=== PATIENT | female | born 1970 | race African-American/Black ===

== ENCOUNTER 2021-08-23 20:51 | Inpatient (IN) | payer BC ==
[2021-08-23 21:42] LABS: Anion Gap 17 mmol/L (10-20); BUN (Urea Nitrogen) 26 mg/dL (9.8-20.1); Calc. Creatinine Clearance 0 mL/min (70-130); Carbon Dioxide 36 mmol/L (22-29); Chloride 88 mmol/L (98-107); Glucose 130 mg/dL (70-105); Sodium 139 mmol/L (136-145)
[2021-08-23 22:00] LABS: Potassium 2.2 mmol/L (3.5-5.1)
[2021-08-23 22:19] LABS: Troponin I 0.026 ng/mL (< 0.028)
[2021-08-23] MEDS ORDERED: Potassium Chloride 20 MEQ TAB PO SCH (22:30)
[2021-08-23 23:51] VITALS: BMI 13.8
[2021-08-24] MEDS: Acetaminophen 325 MG TAB PO PRN (00:22)
[2021-08-24] MEDS: hydrALAZINE 20 MG/ML VIAL SLOW IVP PRN ×3 (00:22→21:30)
[2021-08-24] MEDS: Potassium Chloride 40 MEQ in Sodium Chloride 0.45% 1,000 ML IV SCH ×4 (00:23→18:16)
[2021-08-24 01:47] LABS: Troponin I 0.013 ng/mL (< 0.028)
[2021-08-24 02:31] LABS: Anion Gap 20 mmol/L (10-20); BUN (Urea Nitrogen) 25 mg/dL (9.8-20.1); Calc. Creatinine Clearance 37 mL/min (70-130); Calcium 9.2 mg/dL (7.8-10.44); Carbon Dioxide 32 mmol/L (22-29); Chloride 91 mmol/L (98-107); Glucose 86 mg/dL (70-105); Sodium 140 mmol/L (136-145)
[2021-08-24 02:35] LABS: Potassium 2.5 mmol/L (3.5-5.1)
[2021-08-24] MEDS ORDERED: Potassium Chloride 20 MEQ TAB PO SCH (02:45)
[2021-08-24 04:43] LABS: #Lymphocytes 1.1 thou/uL (1.20-3.40); #Monocytes 0.6 thou/uL (0.11-0.59); #Neutrophils 6.8 thou/uL (1.40-6.50); %Basophils 0.3 % (0.0-1.0); %Eosinophils 0.2 % (0.0-10.0); %Lymphocytes 13.2 % (21.0-51.0); %Monocytes 7.2 % (0.0-10.0); Hemoglobin 12.5 g/dL (12.0-16.0); Mean Corpuscular HGB CONC 34.8 g/dL (32.0-36.0); Mean Corpuscular Hemoglobin 38.2 pg (27.0-31.0); Mean Platelet Volume 7.7 fL (7.4-10.4); Platelet Count 345 thou/uL (130-400); RBC Distribution Width 13.7 % (11.5-14.5); Red Blood Cell (RBC) Count 3.28 mill/uL (4.20-5.40); White Blood Cell (WBC) Count 8.6 thou/uL (4.8-10.8)
[2021-08-24 05:05] LABS: Cardiac Risk 3.9 (Less than 4.5); Cholesterol 212 mg/dl (< 200 Desired); HDL Cholesterol 55 mg/dL (>60 Neg Risk); LDL Cholesterol, Calculated 137 mg/dL; Magnesium 1.6 mg/dL (1.6-2.6); Triglycerides 101 mg/dL (Less than 150)
[2021-08-24 05:08] LABS: Troponin I 0.027 ng/mL (< 0.028)
[2021-08-24] MEDS ORDERED: Electrolyte Replacement Protocol 1 EACH FS SCH (05:30)
[2021-08-24] MEDS ORDERED: Magnesium 2 GM/50 ML 2 GM in Premix Bag 1 BAG IVPB SCH (05:30)
[2021-08-24 06:12] LABS: Anion Gap 18 mmol/L (10-20); BUN (Urea Nitrogen) 22 mg/dL (9.8-20.1); Calc. Creatinine Clearance 40 mL/min (70-130); Calcium 8.8 mg/dL (7.8-10.44); Carbon Dioxide 30 mmol/L (22-29); Chloride 92 mmol/L (98-107); Glucose 111 mg/dL (70-105); Sodium 137 mmol/L (136-145)
[2021-08-24 06:14] LABS: Potassium 2.6 mmol/L (3.5-5.1)
[2021-08-24 08:24] LABS: Hemoglobin A1c 4.4 % (4.0-6.0)
[2021-08-24] MEDS: PHOS-NAK 1 PKT PACK PO SCH ×2 (09:12→12:24)
[2021-08-24] MEDS: Ondansetron ODT 4 MG TAB PO PRN ×2 (09:20→16:32)
[2021-08-24] MEDS ORDERED: Iopamidol-370 76% 500 ML 1 ML ONE (10:39)
[2021-08-24 14:25] LABS: Amphetamine Not Detected (NotDetected); Barbiturates Screen Not Detected (NotDetected); Benzodiazepine Screen Not Detected (NotDetected); Cocaine Metabolite Screen Not Detected (NotDetected); Methadone Not Detected (NotDetected); Methamphetamine Not Detected (NotDetected); Opiate Screen Not Detected (NotDetected); Oxycodone Screen Not Detected (NotDetected); Phencyclidine (PCP) Not Detected (NotDetected); THC/Cannabinoid Screen Not Detected (NotDetected); Tricyclic Screen Not Detected (NotDetected)
[2021-08-24] MEDS ORDERED: Cosyntropin 250 MCG VIAL SLOW IVP SCH (15:30)
[2021-08-24 16:24] LABS: SARS-CoV-2 PCR by NAA Not Detected (NotDetected)
[2021-08-24 18:14] LABS: HBCM Index 0.05 S/CO (0-0.79); HBSAg Index 0.26 S/CO (0-0.99); HIV (1/2) Antibody/Antigen Non-Reactive (NonReactive); HIV 1/2 INDEX 0.09 S/CO (<1.00); Hep A IgM AB Non-Reactive (NonReactive); Hep B Surf Ag Non-Reactive S/CO (NonReactive); Hep C IgG Ab Non-Reactive (NonReactive); Hep C Index 0.07 S/CO (0-0.79); Hepatitis B Core IgM Abs Non-Reactive (NonReactive)
[2021-08-24 18:16] LABS: Syphilis Antibody Nonreactive (Nonreactive); Syphilis Antibody Index 0.05 S/CO (<1.00 Non-Reactive)
[2021-08-25 07:07] LABS: #Lymphocytes 0.9 thou/uL (1.20-3.40); #Monocytes 0.6 thou/uL (0.11-0.59); #Neutrophils 6.2 thou/uL (1.40-6.50); %Basophils 0.1 % (0.0-1.0); %Eosinophils 0.3 % (0.0-10.0); %Lymphocytes 11.4 % (21.0-51.0); %Monocytes 7.9 % (0.0-10.0); %Neutrophils 80.3 % (42.0-75.0); Hemoglobin 12.2 g/dL (12.0-16.0); Mean Corpuscular HGB CONC 33.9 g/dL (32.0-36.0); Mean Corpuscular Hemoglobin 37.6 pg (27.0-31.0); Mean Platelet Volume 7.8 fL (7.4-10.4); Platelet Count 350 thou/uL (130-400); Red Blood Cell (RBC) Count 3.25 mill/uL (4.20-5.40); White Blood Cell (WBC) Count 7.7 thou/uL (4.8-10.8)
[2021-08-25 07:34] LABS: ALT (SGPT) 12 U/L (8-55); AST (SGOT) 21 U/L (5-34); Alkaline Phosphatase 44 U/L (40-110); Anion Gap 18 mmol/L (10-20); BUN (Urea Nitrogen) 14 mg/dL (9.8-20.1); Bilirubin, Total 1.4 mg/dL (0.2-1.2); Calc. Creatinine Clearance 45 mL/min (70-130); Calcium 8.4 mg/dL (7.8-10.44); Carbon Dioxide 27 mmol/L (22-29); Chloride 94 mmol/L (98-107); Glucose 126 mg/dL (70-105); Sodium 136 mmol/L (136-145)
[2021-08-25 07:43] LABS: Potassium 2.9 mmol/L (3.5-5.1)
[2021-08-25] MEDS ORDERED: Potassium Chloride 20 MEQ TAB PO SCH (09:00)
[2021-08-25] MEDS: Potassium Chloride 20 MEQ in Premix Bag 1 BAG IVPB SCH ×2 (09:57→14:46)
[2021-08-25] MEDS: Potassium Chloride 40 MEQ in Sodium Chloride 0.45% 1,000 ML IV SCH ×2 (10:00→14:46)
[2021-08-25] MEDS: hydrALAZINE 20 MG/ML VIAL SLOW IVP PRN (17:34)
[2021-08-25] MEDS: Acetaminophen 325 MG TAB PO PRN (21:37)
[2021-08-26] MEDS: Potassium Chloride 40 MEQ in Sodium Chloride 0.45% 1,000 ML IV SCH (01:26)
[2021-08-26 04:36] VITALS: TEMP 97.5
[2021-08-26 08:22] VITALS: BP 126/94
[2021-08-27] MEDS ORDERED: FLU VACC QS2021-22(6MOS UP)/PF 60 MCG/0.5 ML SYRINGE IM ONE (09:00)
== END 2021-08-26 10:06 | disposition home or self-care (01) | DRG 640 ==
LOC: ERS 20:51 → 2NO 21:26 → T4-A 08-24 18:01
PROVIDERS: ADMIT Student in an Organized Health Care Education/Training Program; ATTEND Internal Medicine
DX: E87.6 Hypokalemia (principal); E43 Unspecified severe protein-calorie malnutrition; R64 Cachexia; Z68.1 Body mass index [BMI] 19.9 or less, adult; Z20.822 Contact with and (suspected) exposure to COVID-19; E83.42 Hypomagnesemia; K52.9 Noninfective gastroenteritis and colitis, unspecified; I10 Essential (primary) hypertension; R73.03 Prediabetes; E53.8 Deficiency of other specified B group vitamins; Z91.14 Patient's other noncompliance with medication regimen; Z91.81 History of falling
CPT/HCPCS: 36415; 36416; 70450; 70551; 71045; 74177; 80048; 80053; 80061; 80074; 80306; 80307; 80400; 81003; 82140; 82533; 82550; 82607; 82746; 83036; 83605; 83735; 84100; 84439; 84443; 84484; 85025; 86780; 87389; 93005; 94760; J0360; J0834; J2060; J3411; J3475; J3480; J7042; Q0162; Q9967; U0003; U0005

== ENCOUNTER 2021-08-26 19:57 | Inpatient (IN) | payer BC ==
[2021-08-26 21:12] LABS: Hemoglobin 13.7 g/dL (12.0-16.0); Mean Corpuscular HGB CONC 33.5 g/dL (32.0-36.0); Mean Corpuscular Hemoglobin 37.5 pg (27.0-31.0); Mean Platelet Volume 7.8 fL (7.4-10.4); Platelet Count 347 thou/uL (130-400); RBC Distribution Width 14.1 % (11.5-14.5); Red Blood Cell (RBC) Count 3.66 mill/uL (4.20-5.40); White Blood Cell (WBC) Count 10.9 thou/uL (4.8-10.8)
[2021-08-26 21:26] LABS: Acetaminophen Less than 6.0 mcg/mL (10.0-30.0); Alcohol Less than 10 mg/dL (Less than 10); CK (CPK) 85 U/L (29-168); Magnesium 1.3 mg/dL (1.6-2.6); Salicylate Less than 8.0 mg/dL (15.0-30.0)
[2021-08-26 21:27] LABS: ALT (SGPT) 21 U/L (8-55); AST (SGOT) 35 U/L (5-34); Albumin 4.1 g/dL (3.5-5.0); Alkaline Phosphatase 53 U/L (40-110); Anion Gap 17 mmol/L (10-20); BUN (Urea Nitrogen) 13 mg/dL (9.8-20.1); Bilirubin, Total 1.5 mg/dL (0.2-1.2); Calc. Creatinine Clearance 0 mL/min (70-130); Calcium 7.8 mg/dL (7.8-10.44); Carbon Dioxide 20 mmol/L (22-29); Chloride 100 mmol/L (98-107); Globulin 3.3 g/dL (2.4-3.5); Glucose 74 mg/dL (70-105); Potassium 3.3 mmol/L (3.5-5.1); Protein, Total 7.4 g/dL (6.0-8.3); Sodium 134 mmol/L (136-145)
[2021-08-26 21:30] LABS: #Lymphocytes 0.9 thou/uL (1.20-3.40); #Monocytes 0.7 thou/uL (0.11-0.59); #Neutrophils 9.2 thou/uL (1.40-6.50); %Basophils 0.1 % (0.0-1.0); %Eosinophils 0.2 % (0.0-10.0); %Lymphocytes 8.6 % (21.0-51.0); %Monocytes 6.5 % (0.0-10.0); %Neutrophils 84.6 % (42.0-75.0)
[2021-08-26] MEDS ORDERED: Magnesium 2 GM/50 ML BAG (IN WATER) ONE (21:42)
[2021-08-26] MEDS ORDERED: Potassium Chloride 20 MEQ/100 ML PREMIX BAG ONE (21:42)
[2021-08-26] MEDS ORDERED: Multivitamins, Adult 10 ML, Thiamine HCl 100 MG, Folic Acid 1 MG in Dextrose 5 %-0.45 %... IV SCH (21:45)
[2021-08-26 23:04] LABS: Bilirubin Negative (Negative); Blood, Urine Negative (Negative); Clarity Clear (Clear); Glucose, Urine (Dipstick) Normal (Negative); Ketone, Urine Negative (Negative); Leukocyte Negative Leu/uL (Negative); Nitrite Negative (Negative); Protein, Urine (Dipstick) Negative (Neg-Trace); Urobilinogen Normal mg/dL (Less than 2)
[2021-08-26 23:11] LABS: Amphetamine Not Detected (NotDetected); Barbiturates Screen Not Detected (NotDetected); Benzodiazepine Screen Not Detected (NotDetected); Cocaine Metabolite Screen Not Detected (NotDetected); Methadone Not Detected (NotDetected); Methamphetamine Not Detected (NotDetected); Opiate Screen Not Detected (NotDetected); Oxycodone Screen Not Detected (NotDetected); Phencyclidine (PCP) Not Detected (NotDetected); THC/Cannabinoid Screen Not Detected (NotDetected); Tricyclic Screen Not Detected (NotDetected)
[2021-08-26] MEDS ORDERED: Lorazepam 2 MG/ML VIAL ONE (23:19)
[2021-08-27] MEDS ORDERED: Lorazepam 1 MG TAB PO PRN
[2021-08-27 00:03] LABS: Lactic Acid 2.2 mmol/L (0.5-2.2)
[2021-08-27] MEDS ORDERED: Acetaminophen 325 MG TAB PO PRN (06:25)
[2021-08-27] MEDS ORDERED: Ondansetron PF 4 MG/2 ML Vial IVP PRN (06:25)
[2021-08-27] MEDS ORDERED: Lorazepam 2 MG/ML VIAL IM PRN (06:45)
[2021-08-27] MEDS ORDERED: Electrolyte Replacement Protocol 1 EACH FS PRN (06:45)
[2021-08-27] MEDS ORDERED: Ondansetron ODT 4 MG TAB PO PRN (06:45)
[2021-08-27] MEDS: Lorazepam 1 MG TAB PO SCH ×4 (06:50→22:44)
[2021-08-27] MEDS ORDERED: Lorazepam 1 MG TAB ONE (06:52)
[2021-08-27 07:15] LABS: #Lymphocytes 1.3 thou/uL (1.20-3.40); #Monocytes 0.8 thou/uL (0.11-0.59); #Neutrophils 8.7 thou/uL (1.40-6.50); %Basophils 0.4 % (0.0-1.0); %Eosinophils 0.3 % (0.0-10.0); %Lymphocytes 11.5 % (21.0-51.0); %Monocytes 7.5 % (0.0-10.0); %Neutrophils 80.3 % (42.0-75.0); Hemoglobin 12.3 g/dL (12.0-16.0); Mean Corpuscular HGB CONC 34.8 g/dL (32.0-36.0); Mean Corpuscular Hemoglobin 38.5 pg (27.0-31.0); Mean Platelet Volume 8.2 fL (7.4-10.4); Platelet Count 239 thou/uL (130-400); RBC Distribution Width 13.9 % (11.5-14.5); Red Blood Cell (RBC) Count 3.19 mill/uL (4.20-5.40); White Blood Cell (WBC) Count 10.8 thou/uL (4.8-10.8)
[2021-08-27 07:28] LABS: ALT (SGPT) 18 U/L (8-55); AST (SGOT) 30 U/L (5-34); Albumin 3.6 g/dL (3.5-5.0); Alkaline Phosphatase 46 U/L (40-110); Anion Gap 15 mmol/L (10-20); BUN (Urea Nitrogen) 12 mg/dL (9.8-20.1); Bilirubin, Total 1.1 mg/dL (0.2-1.2); Calc. Creatinine Clearance 54 mL/min (70-130); Calcium 7.5 mg/dL (7.8-10.44); Carbon Dioxide 20 mmol/L (22-29); Chloride 100 mmol/L (98-107); Globulin 2.8 g/dL (2.4-3.5); Glucose 105 mg/dL (70-105); Magnesium 1.8 mg/dL (1.6-2.6); Potassium 3.6 mmol/L (3.5-5.1); Protein, Total 6.4 g/dL (6.0-8.3); Sodium 131 mmol/L (136-145)
[2021-08-27 07:36] LABS: MDiff Complete? YES; Macrocytosis MODERATE=16-30 cells (100X) (0-5/hpf); Platelet Morphology Comment Appears Adequate; Polychromasia SLIGHT = 2-3 cells (100X) (0-2/hpf)
[2021-08-27] MEDS ORDERED: Magnesium 2 GM/50 ML 2 GM in Premix Bag 1 BAG IVPB SCH (08:00)
[2021-08-27 08:43] LABS: SARS-CoV-2 NAA Rapid Test Not Detected (NotDetected)
[2021-08-27] MEDS: Multivit, Therapeutic 1 TAB PO SCH (09:09)
[2021-08-27] MEDS: Thiamine HCl 200 MG/2 ML VIAL SLOW IVP SCH (09:10)
[2021-08-27] MEDS ORDERED: Magnesium 2 GM/50 ML BAG (IN WATER) ONE (09:21)
[2021-08-27] MEDS ORDERED: Folic Acid 1 MG TAB ONE (09:21)
[2021-08-27] MEDS: Folic Acid 1 MG TAB PO SCH (09:31)
[2021-08-28 05:00] LABS: #Lymphocytes 1.3 thou/uL (1.20-3.40); #Monocytes 0.5 thou/uL (0.11-0.59); #Neutrophils 4.7 thou/uL (1.40-6.50); %Basophils 0.4 % (0.0-1.0); %Eosinophils 0.6 % (0.0-10.0); %Lymphocytes 20.2 % (21.0-51.0); %Monocytes 7.9 % (0.0-10.0); Mean Corpuscular HGB CONC 34.3 g/dL (32.0-36.0); Mean Corpuscular Hemoglobin 37.6 pg (27.0-31.0); Mean Platelet Volume 9.3 fL (7.4-10.4); Platelet Count 244 thou/uL (130-400); RBC Distribution Width 14.1 % (11.5-14.5); Red Blood Cell (RBC) Count 3.19 mill/uL (4.20-5.40); White Blood Cell (WBC) Count 6.7 thou/uL (4.8-10.8)
[2021-08-28 05:59] LABS: Anion Gap 13 mmol/L (10-20); BUN (Urea Nitrogen) 12 mg/dL (9.8-20.1); Calc. Creatinine Clearance 51 mL/min (70-130); Calcium 8.9 mg/dL (7.8-10.44); Carbon Dioxide 23 mmol/L (22-29); Chloride 99 mmol/L (98-107); Glucose 92 mg/dL (70-105); Magnesium 1.8 mg/dL (1.6-2.6); Potassium 3.1 mmol/L (3.5-5.1); Sodium 132 mmol/L (136-145)
[2021-08-28] MEDS: Lorazepam 1 MG TAB PO SCH ×4 (06:44→21:19)
[2021-08-28] MEDS ORDERED: Lorazepam 1 MG TAB PO PRN (06:45)
[2021-08-28] MEDS ORDERED: Potassium Chloride 20 MEQ TAB PO SCH (07:00)
[2021-08-28] MEDS ORDERED: Magnesium 2 GM/50 ML 2 GM in Premix Bag 1 BAG IVPB SCH (07:00)
[2021-08-28] MEDS ORDERED: Hydrocerin (Eucerin) Cream 120 gm Jar TOP PRN (07:02)
[2021-08-28] MEDS ORDERED: Senokot S 8.6-50 MG TAB PO PRN (07:02)
[2021-08-28] MEDS ORDERED: Bisacodyl 5 MG TAB PO PRN (07:02)
[2021-08-28] MEDS ORDERED: Benzonatate 100 MG CAP PO PRN (07:02)
[2021-08-28] MEDS ORDERED: Loperamide HCl 2 MG CAP PO PRN (07:02)
[2021-08-28] MEDS ORDERED: Sodium Chloride 0.65% Nasal 44 ML BOT EA NARE PRN (07:02)
[2021-08-28] MEDS ORDERED: GUAIFENESIN SF SOLN 200 MG/10 ML UDCUP PO PRN (07:02)
[2021-08-28] MEDS ORDERED: Loratadine 10 MG TAB PO PRN (07:02)
[2021-08-28] MEDS ORDERED: Cepastat Lozenges 1 LOZ PO PRN (07:02)
[2021-08-28] MEDS ORDERED: Calcium Carbonate 500 MG ChewTAB PO PRN (07:02)
[2021-08-28] MEDS ORDERED: Artificial Tear Sol 15 ML BOT EA EYE PRN (07:02)
[2021-08-28] MEDS ORDERED: HYDROcodone/Acetaminophen 5/325 mg Tablet PO PRN (07:02)
[2021-08-28] MEDS: Multivit, Therapeutic 1 TAB PO SCH (07:07)
[2021-08-28] MEDS: Folic Acid 1 MG TAB PO SCH (07:07)
[2021-08-28] MEDS: Thiamine HCl 200 MG/2 ML VIAL SLOW IVP SCH (08:18)
[2021-08-28] MEDS: Famotidine 20 MG TAB PO SCH ×3 (08:18→20:39)
[2021-08-28] MEDS ORDERED: FLU VACC QS2021-22(6MOS UP)/PF 60 MCG/0.5 ML SYRINGE IM ONE (09:00)
[2021-08-28 15:05] VITALS: BMI 13.7
[2021-08-28] MEDS: hydrALAZINE 20 MG/ML VIAL SLOW IVP PRN (20:39)
[2021-08-28] MEDS ORDERED: Metoprolol Tartrate 5 MG/5 ML VIAL IVP SCH (21:30)
[2021-08-28] MEDS ORDERED: Metoprolol Tartrate 5 MG/5 ML VIAL ONE (21:31)
[2021-08-29 05:19] LABS: #Eosinphils 0.1 thou/uL (0.0-0.7); #Lymphocytes 1.6 thou/uL (1.20-3.40); #Monocytes 0.8 thou/uL (0.11-0.59); #Neutrophils 5.8 thou/uL (1.40-6.50); %Basophils 0.2 % (0.0-1.0); %Eosinophils 0.9 % (0.0-10.0); %Lymphocytes 18.9 % (21.0-51.0); %Monocytes 9.7 % (0.0-10.0); %Neutrophils 70.2 % (42.0-75.0); Hemoglobin 11.5 g/dL (12.0-16.0); Mean Corpuscular HGB CONC 34.6 g/dL (32.0-36.0); Mean Corpuscular Hemoglobin 38.2 pg (27.0-31.0); Mean Platelet Volume 8.4 fL (7.4-10.4); Platelet Count 321 thou/uL (130-400); RBC Distribution Width 13.9 % (11.5-14.5); White Blood Cell (WBC) Count 8.2 thou/uL (4.8-10.8)
[2021-08-29 05:42] LABS: Anion Gap 14 mmol/L (10-20); BUN (Urea Nitrogen) 14 mg/dL (9.8-20.1); Calc. Creatinine Clearance 50 mL/min (70-130); Calcium 9.7 mg/dL (7.8-10.44); Carbon Dioxide 21 mmol/L (22-29); Chloride 105 mmol/L (98-107); Glucose 113 mg/dL (70-105); Magnesium 1.8 mg/dL (1.6-2.6); Potassium 3.9 mmol/L (3.5-5.1); Sodium 136 mmol/L (136-145)
[2021-08-29] MEDS: Lorazepam 0.5 MG TAB PO SCH ×3 (05:44→17:17)
[2021-08-29] MEDS ORDERED: cloNIDine 0.1 MG TAB PO SCH (05:45)
[2021-08-29] MEDS: Sodium Chloride 0.9% 1,000 ML IV SCH ×2 (05:45→18:12)
[2021-08-29] MEDS ORDERED: Magnesium 2 GM/50 ML 2 GM in Premix Bag 1 BAG IVPB SCH (06:15)
[2021-08-29] MEDS ORDERED: Lorazepam 1 MG TAB PO PRN (06:45)
[2021-08-29] MEDS: Famotidine 20 MG TAB PO SCH ×2 (09:07→20:30)
[2021-08-29] MEDS: Multivit, Therapeutic 1 TAB PO SCH (09:07)
[2021-08-29] MEDS: Enoxaparin Sodium 40 MG/0.4 ML SYRINGE SC SCH (09:07)
[2021-08-29] MEDS: Folic Acid 1 MG TAB PO SCH (09:07)
[2021-08-29] MEDS: Thiamine HCl 200 MG/2 ML VIAL SLOW IVP SCH (11:17)
[2021-08-30] MEDS: Lorazepam 0.5 MG TAB PO SCH (00:14)
[2021-08-30] MEDS: hydrALAZINE 20 MG/ML VIAL SLOW IVP PRN (00:15)
[2021-08-30 03:56] LABS: #Eosinphils 0.1 thou/uL (0.0-0.7); #Lymphocytes 1.6 thou/uL (1.20-3.40); #Monocytes 0.8 thou/uL (0.11-0.59); #Neutrophils 6.3 thou/uL (1.40-6.50); %Basophils 0.5 % (0.0-1.0); %Eosinophils 1.5 % (0.0-10.0); %Monocytes 9.1 % (0.0-10.0); %Neutrophils 70.9 % (42.0-75.0); Hemoglobin 10.1 g/dL (12.0-16.0); Mean Corpuscular HGB CONC 35.5 g/dL (32.0-36.0); Mean Corpuscular Hemoglobin 39.5 pg (27.0-31.0); Mean Platelet Volume 7.6 fL (7.4-10.4); Platelet Count 328 thou/uL (130-400); Red Blood Cell (RBC) Count 2.56 mill/uL (4.20-5.40); White Blood Cell (WBC) Count 8.9 thou/uL (4.8-10.8)
[2021-08-30 04:00] LABS: Anion Gap 13 mmol/L (10-20); BUN (Urea Nitrogen) 12 mg/dL (9.8-20.1); Calc. Creatinine Clearance 49 mL/min (70-130); Calcium 9.2 mg/dL (7.8-10.44); Carbon Dioxide 21 mmol/L (22-29); Chloride 108 mmol/L (98-107); Glucose 100 mg/dL (70-105); Magnesium 1.7 mg/dL (1.6-2.6); Potassium 3.4 mmol/L (3.5-5.1); Sodium 139 mmol/L (136-145)
[2021-08-30] MEDS ORDERED: Magnesium 2 GM/50 ML 2 GM in Premix Bag 1 BAG IVPB SCH (06:00)
[2021-08-30] MEDS ORDERED: Potassium Chloride 20 MEQ TAB PO SCH (06:00)
[2021-08-30] MEDS ORDERED: Lorazepam 0.5 MG TAB PO PRN (06:00)
[2021-08-30] MEDS: Folic Acid 1 MG TAB PO SCH (08:38)
[2021-08-30] MEDS: Enoxaparin Sodium 40 MG/0.4 ML SYRINGE SC SCH (08:38)
[2021-08-30] MEDS: Metoprolol Tartrate 50 MG TAB PO SCH ×2 (08:39→20:35)
[2021-08-30] MEDS: Famotidine 20 MG TAB PO SCH ×2 (08:39→20:35)
[2021-08-30] MEDS: Multivit, Therapeutic 1 TAB PO SCH (08:39)
[2021-08-30] MEDS ORDERED: Metoprolol Tartrate 25 MG TAB PO SCH (09:00)
[2021-08-30] MEDS ORDERED: Amlodipine 5 MG TAB PO SCH (09:00)
[2021-08-30] MEDS: Thiamine 100 MG TAB PO SCH (09:12)
[2021-08-31] MEDS: Multivit, Therapeutic 1 TAB PO SCH (08:48)
[2021-08-31] MEDS: Thiamine 100 MG TAB PO SCH (08:48)
[2021-08-31] MEDS: Famotidine 20 MG TAB PO SCH ×2 (08:49→21:08)
[2021-08-31] MEDS: Folic Acid 1 MG TAB PO SCH (08:50)
[2021-08-31] MEDS: Metoprolol Tartrate 50 MG TAB PO SCH ×2 (08:54→21:08)
[2021-08-31] MEDS ORDERED: Enoxaparin Sodium 30 MG/0.3 ML SYRINGE SC SCH (09:00)
[2021-09-01 00:14] VITALS: BP 130/90; TEMP 98.1
== END 2021-09-01 01:09 | disposition home or self-care (01) | DRG 56 ==
LOC: ERS 19:57 → ERHOLD 23:47 → 2NO 08-27 12:47 → OBSVTOIN 08-28 17:13 → ONC 08-29 13:46
PROVIDERS: ADMIT Internal Medicine; ATTEND Internal Medicine
DX: G31.2 Degeneration of nervous system due to alcohol (principal); E43 Unspecified severe protein-calorie malnutrition; G93.40 Encephalopathy, unspecified; R64 Cachexia; E87.2 Acidosis; Z68.1 Body mass index [BMI] 19.9 or less, adult; F10.239 Alcohol dependence with withdrawal, unspecified; Z20.822 Contact with and (suspected) exposure to COVID-19; R73.03 Prediabetes; I10 Essential (primary) hypertension; E87.6 Hypokalemia; E83.42 Hypomagnesemia; R79.89 Other specified abnormal findings of blood chemistry; Z91.81 History of falling; Z91.19 Patient's noncompliance with other medical treatment and regimen
CPT/HCPCS: 36415; 70450; 71045; 72125; 76536; 80048; 80053; 80306; 80307; 81003; 82140; 82550; 83605; 83735; 84439; 84443; 84484; 85025; 93005; 94760; J0360; J1650; J2060; J3411; J3475; J3480; J7042; J7050; U0002

== ENCOUNTER 2022-04-27 15:57 | Emergency (ER) | payer BC ==
[2022-04-28] MEDS ORDERED: Potassium Chloride 20 MEQ TAB ONE (18:02)
[2022-04-28] MEDS ORDERED: Potassium Chloride 20 MEQ/100 ML PREMIX BAG ONE ×2 (18:02→18:07)
== END 2022-04-27 17:10 | disposition left against medical advice (07) ==
LOC: ERS 15:57
DX: Z53.21 Procedure and treatment not carried out due to patient leaving prior to being seen by health care provider (principal)
CPT/HCPCS: J3480

== ENCOUNTER 2022-04-28 16:15 | Inpatient (IN) | payer BC ==
[2022-04-28 17:07] LABS: Hemoglobin 12.3 g/dL (12.0-16.0); Mean Corpuscular HGB CONC 33.5 g/dL (32.0-36.0); Mean Corpuscular Hemoglobin 36.5 pg (27.0-31.0); Mean Platelet Volume 8.3 fL (7.4-10.4); Platelet Count 281 thou/uL (130-400); Red Blood Cell (RBC) Count 3.37 mill/uL (4.20-5.40)
[2022-04-28 17:21] LABS: Eosinophils 5 % (0-10); Lymphocytes 29 % (21-51); MDiff Complete? YES; Macrocytosis SLIGHT = 6-15 cells (100X) (0-5/hpf); Monocytes 3 % (0-10); Neutrophil 47 % (42-75); Platelet Morphology Comment Appears Adequate; Polychromasia SLIGHT = 2-3 cells (100X) (0-2/hpf); Reactive Lymphocytes 16 % (0-10); Target Cells SLIGHT = 2-5 cells (100X) (0-1/hpf)
[2022-04-28 17:27] LABS: ALT (SGPT) 10 U/L (8-55); AST (SGOT) 28 U/L (5-34); Albumin 3.2 g/dL (3.5-5.0); Alkaline Phosphatase 51 U/L (40-110); Anion Gap 17 mmol/L (10-20); BUN (Urea Nitrogen) 6 mg/dL (9.8-20.1); Bilirubin, Total 2.3 mg/dL (0.2-1.2); Calc. Creatinine Clearance 0 mL/min (70-130); Calcium 8.3 mg/dL (7.8-10.44); Carbon Dioxide 26 mmol/L (22-29); Chloride 98 mmol/L (98-107); Estimated GFR 37; Globulin 3.1 g/dL (2.4-3.5); Glucose 99 mg/dL (70-105); Protein, Total 6.3 g/dL (6.0-8.3); Sodium 140 mmol/L (136-145)
[2022-04-28 17:33] LABS: Potassium 1.3 mmol/L (3.5-5.1)
[2022-04-28 18:01] LABS: Phosphorus 3.3 mg/dL (2.3-4.7)
[2022-04-28 18:03] LABS: Magnesium 1.4 mg/dL (1.6-2.6)
[2022-04-28] MEDS ORDERED: Silver Nitrate Application 1 EACH ONE (20:59)
[2022-04-28] MEDS ORDERED: Electrolyte Replacement Protocol 1 EACH FS SCH (22:00)
[2022-04-28] MEDS ORDERED: Ondansetron PF 4 MG/2 ML Vial IVP PRN (22:06)
[2022-04-28] MEDS ORDERED: Ondansetron ODT 4 MG TAB PO PRN (22:06)
[2022-04-28] MEDS ORDERED: Acetaminophen 650 MG Suppository PR PRN (22:06)
[2022-04-28 23:23] VITALS: BMI 11.9
[2022-04-28 23:39] LABS: Anion Gap 13 mmol/L (10-20); BUN (Urea Nitrogen) 5 mg/dL (9.8-20.1); Calc. Creatinine Clearance 22 mL/min (70-130); Calcium 7.6 mg/dL (7.8-10.44); Carbon Dioxide 29 mmol/L (22-29); Chloride 105 mmol/L (98-107); Estimated GFR 40; Glucose 87 mg/dL (70-105); Magnesium 1.3 mg/dL (1.6-2.6); Sodium 145 mmol/L (136-145)
[2022-04-28 23:44] LABS: Potassium 1.6 mmol/L (3.5-5.1)
[2022-04-29] MEDS ORDERED: Dextrose 50% Abboject 50 ML SYRINGE SLOW IVP PRN (00:07)
[2022-04-29] MEDS ORDERED: HumaLOG 300 UNITS/3 ML VIAL SC PRN ×2 (00:07)
[2022-04-29] MEDS ORDERED: Dextrose 5% in Water 1,000 ML IV PRN (00:07)
[2022-04-29] MEDS ORDERED: Magnesium 2 GM/50 ML(in water) 2 GM in Premix Bag 1 BAG IVPB SCH (01:15)
[2022-04-29] MEDS: NS 0.9% w/ 20 MEQ KCL 1,000 ML IV SCH ×2 (01:31→08:25)
[2022-04-29] MEDS: Acetaminophen 325 MG TAB PO PRN ×2 (01:43→12:09)
[2022-04-29 02:04] LABS: Bilirubin Negative (Negative); Blood, Urine Negative (Negative); Clarity Clear (Clear); Glucose, Urine (Dipstick) Normal (Negative); Ketone, Urine Negative (Negative); Leukocyte 75 Leu/uL (Negative); Nitrite Negative (Negative); Protein, Urine (Dipstick) 10 mg/dL (Neg-Trace); Specific Gravity, Urine 1.013 (1.002-1.036); Urobilinogen Normal mg/dL (Less than 2); pH, Urine 6.5 (5.0-9.0)
[2022-04-29 02:11] LABS: RBC/HPF 0-3 HPF (0-3); WBC/HPF 0-3 HPF (0-3)
[2022-04-29 02:12] LABS: Bacteria/HPF 1+ HPF (None Seen); Squamous Epithelial 0-3 HPF (0-3)
[2022-04-29] MEDS: Potassium Chloride 20 MEQ in Premix Bag 1 BAG IVPB SCH ×4 (03:05→11:29)
[2022-04-29 05:24] LABS: Hemoglobin 11.1 g/dL (12.0-16.0); Lymphocytes 23 % (21-51); MDiff Complete? YES; Macrocytosis MODERATE=16-30 cells (100X) (0-5/hpf); Mean Corpuscular HGB CONC 34.2 g/dL (32.0-36.0); Mean Corpuscular Hemoglobin 36.6 pg (27.0-31.0); Mean Platelet Volume 8.3 fL (7.4-10.4); Monocytes 6 % (0-10); Neutrophil 70 % (42-75); Ovalocytes SLIGHT = 2-5 cells (100X) (0-1/hpf); Platelet Count 245 thou/uL (130-400); Platelet Morphology Comment Appears Adequate; RBC Distribution Width 13.8 % (11.5-14.5); Red Blood Cell (RBC) Count 3.03 mill/uL (4.20-5.40); Target Cells SLIGHT = 2-5 cells (100X) (0-1/hpf); White Blood Cell (WBC) Count 8.2 thou/uL (4.8-10.8)
[2022-04-29 06:58] LABS: Magnesium 2.4 mg/dL (1.6-2.6)
[2022-04-29 07:53] LABS: Creatinine, Urine 170.31 mg/dL (47-110); Potassium, Urine 11.9 mmol/L
[2022-04-29] MEDS: Enoxaparin Sodium 30 MG/0.3 ML SYRINGE SC SCH (08:25)
[2022-04-29] MEDS ORDERED: Dicyclomine 20 MG TAB PO PRN (17:19)
[2022-04-29] MEDS ORDERED: Morphine 2 MG/ML VIAL SLOW IVP PRN (17:19)
[2022-04-29 19:25] LABS: Anion Gap 16 mmol/L (10-20); Carbon Dioxide 21 mmol/L (22-29); Chloride 105 mmol/L (98-107); Sodium 139 mmol/L (136-145)
[2022-04-29 19:31] LABS: Potassium 2.6 mmol/L (3.5-5.1)
[2022-04-29 19:33] LABS: Albumin 2.6 g/dL (3.5-5.0); BUN (Urea Nitrogen) 4 mg/dL (9.8-20.1); BUN/Creatinine Ratio 3.33; Calc. Creatinine Clearance 29 mL/min (70-130); Calcium 7.7 mg/dL (7.8-10.44); Estimated GFR 54; Glucose 133 mg/dL (70-105); Phosphorus 2.1 mg/dL (2.3-4.7); Potassium 2.6 mmol/L (3.5-5.1)
[2022-04-29] MEDS: Gabapentin 100 MG CAP PO SCH (21:57)
[2022-04-29] MEDS: Potassium Bicarbonate/Cit Ac 20 MEQ TAB PO SCH (21:57)
[2022-04-30] MEDS: Potassium Bicarbonate/Cit Ac 20 MEQ TAB PO SCH (00:04)
[2022-04-30 06:48] LABS: Albumin 2.2 g/dL (3.5-5.0); Anion Gap 11 mmol/L (10-20); BUN (Urea Nitrogen) 4 mg/dL (9.8-20.1); BUN/Creatinine Ratio 3.67; Calc. Creatinine Clearance 32 mL/min (70-130); Calcium 7.3 mg/dL (7.8-10.44); Carbon Dioxide 28 mmol/L (22-29); Chloride 105 mmol/L (98-107); Critical Call Chemistry 2NO.AL; Estimated GFR 61; Glucose 59 mg/dL (70-105); Phosphorus 2.2 mg/dL (2.3-4.7); Potassium 2.4 mmol/L (3.5-5.1); Sodium 142 mmol/L (136-145)
[2022-04-30 06:49] LABS: Potassium 2.4 mmol/L (3.5-5.1)
[2022-04-30] MEDS ORDERED: Potassium Chloride 20 MEQ TAB PO SCH (08:00)
[2022-04-30] MEDS: Potassium Chloride 20 MEQ TAB PO SCH ×3 (09:12→20:20)
[2022-04-30] MEDS: Folic Acid 1 MG TAB PO SCH (09:13)
[2022-04-30] MEDS: Thiamine 100 MG TAB PO SCH (09:13)
[2022-04-30] MEDS: Multivit, Therapeutic 1 TAB PO SCH (09:13)
[2022-04-30] MEDS: Gabapentin 100 MG CAP PO SCH ×3 (09:13→20:20)
[2022-04-30] MEDS: Enoxaparin Sodium 30 MG/0.3 ML SYRINGE SC SCH (09:14)
[2022-04-30 16:49] LABS: Anion Gap 15 mmol/L (10-20); BUN (Urea Nitrogen) 5 mg/dL (9.8-20.1); Calc. Creatinine Clearance 34 mL/min (70-130); Calcium 7.3 mg/dL (7.8-10.44); Carbon Dioxide 23 mmol/L (22-29); Chloride 104 mmol/L (98-107); Estimated GFR 67; Glucose 228 mg/dL (70-105); Potassium 3.9 mmol/L (3.5-5.1); Sodium 138 mmol/L (136-145)
[2022-05-01] MEDS: Potassium Chloride 20 MEQ TAB PO SCH ×2 (01:54→09:51)
[2022-05-01] MEDS: Enoxaparin Sodium 30 MG/0.3 ML SYRINGE SC SCH (09:52)
[2022-05-01] MEDS: Multivit, Therapeutic 1 TAB PO SCH (09:52)
[2022-05-01] MEDS: Thiamine 100 MG TAB PO SCH (09:52)
[2022-05-01] MEDS: Folic Acid 1 MG TAB PO SCH (09:52)
[2022-05-01] MEDS: Gabapentin 100 MG CAP PO SCH (09:52)
[2022-05-01 13:25] VITALS: BP 130/91; TEMP 97.6
== END 2022-05-01 13:59 | disposition home or self-care (01) | DRG 640 ==
LOC: ERS 16:15 → ERHOLD 18:25 → 2NO 21:17
PROVIDERS: ADMIT Internal Medicine; ATTEND Internal Medicine
DX: E87.6 Hypokalemia (principal); E43 Unspecified severe protein-calorie malnutrition; R64 Cachexia; Z68.1 Body mass index [BMI] 19.9 or less, adult; N17.9 Acute kidney failure, unspecified; Z20.822 Contact with and (suspected) exposure to COVID-19; E11.9 Type 2 diabetes mellitus without complications; I10 Essential (primary) hypertension; E86.0 Dehydration; E83.42 Hypomagnesemia; Z28.311 Partially vaccinated for COVID-19; Z79.899 Other long term (current) drug therapy
CPT/HCPCS: 36415; 36416; 36556; 71045; 80053; 80069; 81001; 82088; 82436; 82570; 83735; 84100; 84133; 84244; 84300; 84443; 85025; 87077; 87086; 87186; 93005; 96365; 96366; J1650; J2270; J3475; J3480; U0003; U0005

== ENCOUNTER 2022-09-03 03:53 | Emergency (ER) | payer BC ==
[2022-09-03 04:56] LABS: Hemoglobin 10.6 g/dL (12.0-16.0); Mean Corpuscular HGB CONC 34.7 g/dL (32.0-36.0); Mean Platelet Volume 7.1 fL (7.4-10.4); Platelet Count 198 10x3/uL (130-400); RBC Distribution Width 18.2 % (11.5-14.5); Red Blood Cell (RBC) Count 2.59 mill/uL (4.20-5.40); White Blood Cell (WBC) Count 4.9 10x3/uL (4.8-10.8)
[2022-09-03 05:20] LABS: #Basophils 0.1 thou/uL (0.0-0.2); #Eosinphils 0.2 thou/uL (0.0-0.7); #Lymphocytes 2.2 thou/uL (1.20-3.40); #Monocytes 0.3 thou/uL (0.11-0.59); #Neutrophils 2.1 thou/uL (1.40-6.50); %Basophils 1.1 % (0.0-1.0); %Lymphocytes 45.4 % (21.0-51.0); %Monocytes 6.3 % (0.0-10.0); %Neutrophils 43.1 % (42.0-75.0); MDiff Complete? YES; Macrocytosis MODERATE=16-30 cells (100X) (0-5/hpf)
[2022-09-03 05:27] LABS: Acetaminophen Less than 10.0 mcg/mL (10.0-30.0); Alcohol 216 mg/dL (Less than 10); CK (CPK) 80 U/L (29-168); Salicylate Less than 8.0 mg/dL (15.0-30.0)
[2022-09-03 05:29] LABS: ALT (SGPT) 20 U/L (8-55); AST (SGOT) 85 U/L (5-34); Albumin 3.9 g/dL (3.5-5.0); Alkaline Phosphatase 69 U/L (40-110); Anion Gap 15 mmol/L (10-20); BUN (Urea Nitrogen) 10 mg/dL (9.8-20.1); Bilirubin, Total 1.5 mg/dL (0.2-1.2); Calc. Creatinine Clearance 0 mL/min (70-130); Calcium 8.9 mg/dL (7.8-10.44); Carbon Dioxide 24 mmol/L (22-29); Chloride 106 mmol/L (98-107); Estimated GFR 60; Globulin 2.9 g/dL (2.4-3.5); Glucose 87 mg/dL (70-105); Potassium 3.4 mmol/L (3.5-5.1); Protein, Total 6.8 g/dL (6.0-8.3); Sodium 142 mmol/L (136-145)
[2022-09-03 10:19] LABS: Bilirubin Negative (Negative); Blood, Urine Negative (Negative); Clarity Turbid (Clear); Glucose, Urine (Dipstick) Normal (Negative); Ketone, Urine Negative (Negative); Leukocyte 250 Leu/uL (Negative); Nitrite Negative (Negative); Protein, Urine (Dipstick) 10 mg/dL (Neg-Trace); RBC/HPF 0-3 HPF (0-3); Specific Gravity, Urine 1.018 (1.002-1.036); Urobilinogen Normal mg/dL (Less than 2)
[2022-09-03 10:20] LABS: Bacteria/HPF 2+ HPF (None Seen)
[2022-09-03] MEDS ORDERED: Ibuprofen 200 MG TAB ONE (10:20)
[2022-09-03 10:25] LABS: Amphetamine Not Detected (NotDetected); Barbiturates Screen Not Detected (NotDetected); Benzodiazepine Screen Not Detected (NotDetected); Cocaine Metabolite Screen Not Detected (NotDetected); Methadone Not Detected (NotDetected); Methamphetamine Not Detected (NotDetected); Opiate Screen Not Detected (NotDetected); Oxycodone Screen Not Detected (NotDetected); Phencyclidine (PCP) Not Detected (NotDetected); THC/Cannabinoid Screen Not Detected (NotDetected); Tricyclic Screen Not Detected (NotDetected)
== END 2022-09-03 19:23 | disposition home or self-care (01) ==
LOC: ERS 03:53
DX: F43.21 Adjustment disorder with depressed mood (principal); R45.851 Suicidal ideations; E11.9 Type 2 diabetes mellitus without complications; I10 Essential (primary) hypertension
CPT/HCPCS: 36415; 36416; 80053; 80306; 80307; 81003; 81015; 82550; 85025; 99284

== ENCOUNTER 2022-09-12 21:38 | Inpatient (IN) | payer BC ==
[2022-09-12 22:44] LABS: Amphetamine Not Detected (NotDetected); Barbiturates Screen Not Detected (NotDetected); Benzodiazepine Screen Not Detected (NotDetected); Cocaine Metabolite Screen Not Detected (NotDetected); Methadone Not Detected (NotDetected); Methamphetamine Not Detected (NotDetected); Opiate Screen Not Detected (NotDetected); Oxycodone Screen Not Detected (NotDetected); Phencyclidine (PCP) Not Detected (NotDetected); THC/Cannabinoid Screen Not Detected (NotDetected); Tricyclic Screen Not Detected (NotDetected)
[2022-09-12 22:59] LABS: #Eosinphils 0.1 thou/uL (0.0-0.7); #Lymphocytes 1.6 thou/uL (1.20-3.40); #Monocytes 0.2 thou/uL (0.11-0.59); #Neutrophils 2.8 thou/uL (1.40-6.50); %Basophils 0.7 % (0.0-1.0); %Eosinophils 2.1 % (0.0-10.0); %Lymphocytes 33.3 % (21.0-51.0); %Monocytes 4.4 % (0.0-10.0); %Neutrophils 59.5 % (42.0-75.0); ALT (SGPT) 21 U/L (8-55); AST (SGOT) 87 U/L (5-34); Albumin 4.2 g/dL (3.5-5.0); Alkaline Phosphatase 82 U/L (40-110); Anion Gap 21 mmol/L (10-20); BUN (Urea Nitrogen) 8 mg/dL (9.8-20.1); Bilirubin, Total 2.4 mg/dL (0.2-1.2); Calc. Creatinine Clearance 0 mL/min (70-130); Calcium 9.1 mg/dL (7.8-10.44); Carbon Dioxide 21 mmol/L (22-29); Chloride 98 mmol/L (98-107); Estimated GFR 62; Globulin 3.4 g/dL (2.4-3.5); Glucose 156 mg/dL (70-105); Hemoglobin 12.2 g/dL (12.0-16.0); Mean Corpuscular HGB CONC 34.3 g/dL (32.0-36.0); Mean Platelet Volume 7.7 fL (7.4-10.4); Platelet Count 168 10x3/uL (130-400); Potassium 2.9 mmol/L (3.5-5.1); Protein, Total 7.6 g/dL (6.0-8.3); Red Blood Cell (RBC) Count 2.99 mill/uL (4.20-5.40); Sodium 137 mmol/L (136-145); White Blood Cell (WBC) Count 4.7 10x3/uL (4.8-10.8)
[2022-09-12 23:00] LABS: Bacteria/HPF None Seen HPF (None Seen); Bilirubin Negative (Negative); Blood, Urine Negative (Negative); Clarity Clear (Clear); Glucose, Urine (Dipstick) Normal (Negative); Ketone, Urine Negative (Negative); Leukocyte 500 Leu/uL (Negative); Nitrite Negative (Negative); Protein, Urine (Dipstick) Negative (Neg-Trace); RBC/HPF 0-3 HPF (0-3); Specific Gravity, Urine 1.006 (1.002-1.036); Squamous Epithelial 0-3 HPF (0-3); Urobilinogen Normal mg/dL (Less than 2); pH, Urine 6.5 (5.0-9.0)
[2022-09-12 23:19] LABS: Acetaminophen Less than 10.0 mcg/mL (10.0-30.0); Alcohol 323 mg/dL (Less than 10); CK (CPK) 74 U/L (29-168); Salicylate Less than 8.0 mg/dL (15.0-30.0)
[2022-09-13 01:10] LABS: SARS-CoV-2 NAA Rapid Test Not Detected (NotDetected)
[2022-09-13] MEDS ORDERED: Pot Chloride/Pot Bicarb/Cit Ac 25 mEq Effervescent Tablet ONE (04:41)
[2022-09-13] MEDS ORDERED: Dextrose 5 % And 0.9 % NaCl 1,000 ML IV SCH (05:30)
[2022-09-13 05:32] LABS: Anion Gap 22 mmol/L (10-20); BUN (Urea Nitrogen) 5 mg/dL (9.8-20.1); Calc. Creatinine Clearance 0 mL/min (70-130); Calcium 8.5 mg/dL (7.8-10.44); Carbon Dioxide 20 mmol/L (22-29); Chloride 102 mmol/L (98-107); Estimated GFR 81; Glucose 81 mg/dL (70-105); Magnesium 1.2 mg/dL (1.6-2.6); Potassium 3.5 mmol/L (3.5-5.1); Sodium 140 mmol/L (136-145)
[2022-09-13] MEDS ORDERED: Acetaminophen 325 MG TAB PO PRN (05:39)
[2022-09-13] MEDS ORDERED: Dextrose 5% in Water 1,000 ML IV PRN (07:04)
[2022-09-13] MEDS ORDERED: Dextrose 50% Abboject 50 ML SYRINGE SLOW IVP PRN (07:04)
[2022-09-13] MEDS ORDERED: Lorazepam 2 MG/ML VIAL IM PRN (07:07)
[2022-09-13] MEDS ORDERED: Lorazepam 1 MG TAB PO PRN (07:07)
[2022-09-13] MEDS ORDERED: Electrolyte Replacement Protocol 1 EACH FS SCH (07:15)
[2022-09-13] MEDS ORDERED: Magnesium 2 GM/50 ML(in water) 2 GM in Premix Bag 1 BAG IVPB SCH (07:30)
[2022-09-13] MEDS ORDERED: Electrolyte Replacement Protocol FS PRN (07:30)
[2022-09-13] MEDS: Dextrose 5 % And 0.9 % NaCl 1,000 ML IV SCH ×2 (07:58→17:39)
[2022-09-13] MEDS ORDERED: Magnesium Sulfate In Water 4 GM in Premix Bag 1 BAG IVPB SCH (08:00)
[2022-09-13] MEDS ORDERED: Enoxaparin Sodium 30 MG/0.3 ML SYRINGE ONE (08:20)
[2022-09-13] MEDS ORDERED: Folic Acid 1 MG TAB ONE (08:21)
[2022-09-13 08:24] LABS: #Eosinphils 0.1 thou/uL (0.0-0.7); #Lymphocytes 1.3 thou/uL (1.20-3.40); #Monocytes 0.4 thou/uL (0.11-0.59); #Neutrophils 2.6 thou/uL (1.40-6.50); %Basophils 0.5 % (0.0-1.0); %Eosinophils 2.3 % (0.0-10.0); %Lymphocytes 28.4 % (21.0-51.0); %Monocytes 9.3 % (0.0-10.0); %Neutrophils 59.5 % (42.0-75.0); Hemoglobin 9.9 g/dL (12.0-16.0); Mean Corpuscular HGB CONC 33.2 g/dL (32.0-36.0); Mean Corpuscular Hemoglobin 40.7 pg (27.0-31.0); Mean Platelet Volume 7.7 fL (7.4-10.4); Platelet Count 145 10x3/uL (130-400); RBC Distribution Width 16.8 % (11.5-14.5); Red Blood Cell (RBC) Count 2.44 mill/uL (4.20-5.40); White Blood Cell (WBC) Count 4.4 10x3/uL (4.8-10.8)
[2022-09-13 08:49] LABS: Lactic Acid 5.1 mmol/L (0.5-2.2)
[2022-09-13] MEDS: Enoxaparin Sodium 30 MG/0.3 ML SYRINGE SC SCH (08:56)
[2022-09-13] MEDS: Folic Acid 1 MG TAB PO SCH (08:58)
[2022-09-13] MEDS: Multivit, Therapeutic 1 TAB PO SCH (09:43)
[2022-09-13] MEDS: Thiamine HCl 200 MG/2 ML VIAL SLOW IVP SCH (09:44)
[2022-09-13] MEDS ORDERED: Magnesium Oxide 250 MG TAB PO SCH (11:00)
[2022-09-13] MEDS ORDERED: Ondansetron PF 4 MG/2 ML Vial ONE (11:45)
[2022-09-13] MEDS: Ondansetron PF 4 MG/2 ML Vial IVP PRN ×2 (11:59→18:32)
[2022-09-13 13:45] LABS: Lactic Acid 2.4 mmol/L (0.5-2.2)
[2022-09-13 14:01] LABS: Anion Gap 20 mmol/L (10-20); BUN (Urea Nitrogen) 5 mg/dL (9.8-20.1); Calc. Creatinine Clearance 56 mL/min (70-130); Calcium 8.2 mg/dL (7.8-10.44); Carbon Dioxide 20 mmol/L (22-29); Chloride 100 mmol/L (98-107); Estimated GFR 85; Glucose 144 mg/dL (70-105); Magnesium 2.7 mg/dL (1.6-2.6); Potassium 3.8 mmol/L (3.5-5.1); Sodium 136 mmol/L (136-145)
[2022-09-13] MEDS: Gabapentin 100 MG CAP PO SCH ×2 (15:38→21:51)
[2022-09-13] MEDS ORDERED: FLU VACC QS2022-23(6MOS UP)/PF 60 MCG/0.5 ML SYRINGE IM ONE (16:45)
[2022-09-13] MEDS: Metoprolol Tartrate 25 MG TAB PO SCH (21:52)
[2022-09-14] MEDS: Dextrose 5 % And 0.9 % NaCl 1,000 ML IV SCH ×3 (03:33→22:10)
[2022-09-14 05:38] LABS: #Lymphocytes 1.3 thou/uL (1.20-3.40); #Monocytes 0.4 thou/uL (0.11-0.59); #Neutrophils 4.2 thou/uL (1.40-6.50); %Basophils 0.7 % (0.0-1.0); %Eosinophils 0.2 % (0.0-10.0); %Lymphocytes 21.4 % (21.0-51.0); %Monocytes 6.7 % (0.0-10.0); Hemoglobin 9.9 g/dL (12.0-16.0); Mean Corpuscular HGB CONC 33.2 g/dL (32.0-36.0); Mean Corpuscular Hemoglobin 40.7 pg (27.0-31.0); Platelet Count 132 10x3/uL (130-400); RBC Distribution Width 16.4 % (11.5-14.5); Red Blood Cell (RBC) Count 2.43 mill/uL (4.20-5.40); White Blood Cell (WBC) Count 5.8 10x3/uL (4.8-10.8)
[2022-09-14 06:03] LABS: ALT (SGPT) 13 U/L (8-55); AST (SGOT) 45 U/L (5-34); Albumin 3.6 g/dL (3.5-5.0); Alkaline Phosphatase 65 U/L (40-110); Anion Gap 13 mmol/L (10-20); BUN (Urea Nitrogen) Less than 4 mg/dL (9.8-20.1); Bilirubin, Total 2.9 mg/dL (0.2-1.2); Calc. Creatinine Clearance 45 mL/min (70-130); Calcium 7.6 mg/dL (7.8-10.44); Carbon Dioxide 26 mmol/L (22-29); Chloride 98 mmol/L (98-107); Estimated GFR 83; Globulin 2.6 g/dL (2.4-3.5); Glucose 144 mg/dL (70-105); Magnesium 1.7 mg/dL (1.6-2.6); Potassium 3.4 mmol/L (3.5-5.1); Protein, Total 6.2 g/dL (6.0-8.3); Sodium 134 mmol/L (136-145)
[2022-09-14] MEDS ORDERED: Lorazepam 1 MG TAB PO PRN (07:07)
[2022-09-14] MEDS ORDERED: Potassium Chloride 20 MEQ TAB PO SCH (08:00)
[2022-09-14] MEDS ORDERED: Magnesium 2 GM/50 ML(in water) 2 GM in Premix Bag 1 BAG IVPB SCH (08:00)
[2022-09-14] MEDS: Thiamine HCl 200 MG/2 ML VIAL SLOW IVP SCH (08:55)
[2022-09-14] MEDS: Enoxaparin Sodium 30 MG/0.3 ML SYRINGE SC SCH (08:55)
[2022-09-14] MEDS: Multivit, Therapeutic 1 TAB PO SCH (08:56)
[2022-09-14] MEDS: Metoprolol Tartrate 25 MG TAB PO SCH ×2 (08:56→22:06)
[2022-09-14] MEDS: Gabapentin 100 MG CAP PO SCH ×3 (08:56→22:07)
[2022-09-14] MEDS: Cyanocobalamin (Vitamin B-12) 1,000 MCG TAB PO SCH (08:57)
[2022-09-14] MEDS: Folic Acid 1 MG TAB PO SCH (08:57)
[2022-09-14 16:58] VITALS: BMI 14.5
[2022-09-15] MEDS: Dextrose 5 % And 0.9 % NaCl 1,000 ML IV SCH ×5 (00:06→22:00)
[2022-09-15 05:28] LABS: #Eosinphils 0.1 thou/uL (0.0-0.7); #Lymphocytes 1.4 thou/uL (1.20-3.40); #Monocytes 0.2 thou/uL (0.11-0.59); %Basophils 0.3 % (0.0-1.0); %Eosinophils 1.3 % (0.0-10.0); %Lymphocytes 29.1 % (21.0-51.0); %Neutrophils 64.3 % (42.0-75.0); Mean Platelet Volume 8.6 fL (7.4-10.4); Platelet Count 126 10x3/uL (130-400); RBC Distribution Width 16.2 % (11.5-14.5); Red Blood Cell (RBC) Count 2.13 mill/uL (4.20-5.40); White Blood Cell (WBC) Count 4.7 10x3/uL (4.8-10.8)
[2022-09-15 05:59] LABS: ALT (SGPT) 16 U/L (8-55); AST (SGOT) 63 U/L (5-34); Albumin 3.1 g/dL (3.5-5.0); Alkaline Phosphatase 52 U/L (40-110); Anion Gap 9 mmol/L (10-20); BUN (Urea Nitrogen) 4 mg/dL (9.8-20.1); Bilirubin, Total 1.2 mg/dL (0.2-1.2); Calc. Creatinine Clearance 51 mL/min (70-130); Calcium 7.7 mg/dL (7.8-10.44); Carbon Dioxide 26 mmol/L (22-29); Chloride 107 mmol/L (98-107); Estimated GFR 86; Globulin 2.1 g/dL (2.4-3.5); Glucose 96 mg/dL (70-105); Magnesium 1.9 mg/dL (1.6-2.6); Potassium 3.4 mmol/L (3.5-5.1); Protein, Total 5.2 g/dL (6.0-8.3); Sodium 139 mmol/L (136-145)
[2022-09-15] MEDS ORDERED: Lorazepam 1 MG TAB PO PRN (07:07)
[2022-09-15 08:13] LABS: Lactic Acid 1.6 mmol/L (0.5-2.2)
[2022-09-15] MEDS ORDERED: Potassium Chloride 20 MEQ TAB PO SCH (09:00)
[2022-09-15] MEDS ORDERED: Magnesium 2 GM/50 ML(in water) 2 GM in Premix Bag 1 BAG IVPB SCH (09:00)
[2022-09-15] MEDS: Cyanocobalamin (Vitamin B-12) 1,000 MCG TAB PO SCH (09:01)
[2022-09-15] MEDS: Gabapentin 100 MG CAP PO SCH ×3 (09:01→20:54)
[2022-09-15] MEDS: Enoxaparin Sodium 30 MG/0.3 ML SYRINGE SC SCH (09:01)
[2022-09-15] MEDS: Folic Acid 1 MG TAB PO SCH (09:01)
[2022-09-15] MEDS: Metoprolol Tartrate 25 MG TAB PO SCH ×2 (09:02→20:55)
[2022-09-15] MEDS: Multivit, Therapeutic 1 TAB PO SCH (09:02)
[2022-09-15] MEDS: Thiamine HCl 200 MG/2 ML VIAL SLOW IVP SCH (10:37)
[2022-09-15 13:51] LABS: Potassium 4.5 mmol/L (3.5-5.1)
[2022-09-16] MEDS: Dextrose 5 % And 0.9 % NaCl 1,000 ML IV SCH ×3 (04:07→17:49)
[2022-09-16 05:39] LABS: #Eosinphils 0.2 thou/uL (0.0-0.7); #Lymphocytes 1.2 thou/uL (1.20-3.40); #Monocytes 0.3 thou/uL (0.11-0.59); %Eosinophils 3.5 % (0.0-10.0); %Lymphocytes 25.6 % (21.0-51.0); %Neutrophils 62.8 % (42.0-75.0); Hemoglobin 8.8 g/dL (12.0-16.0); Mean Corpuscular HGB CONC 32.9 g/dL (32.0-36.0); Mean Corpuscular Hemoglobin 41.1 pg (27.0-31.0); Mean Platelet Volume 8.6 fL (7.4-10.4); Platelet Count 135 10x3/uL (130-400); RBC Distribution Width 16.3 % (11.5-14.5); Red Blood Cell (RBC) Count 2.13 mill/uL (4.20-5.40); White Blood Cell (WBC) Count 4.8 10x3/uL (4.8-10.8)
[2022-09-16 06:03] LABS: ALT (SGPT) 14 U/L (8-55); AST (SGOT) 49 U/L (5-34); Albumin 2.9 g/dL (3.5-5.0); Alkaline Phosphatase 50 U/L (40-110); Anion Gap 9 mmol/L (10-20); BUN (Urea Nitrogen) Less than 4 mg/dL (9.8-20.1); Bilirubin, Total 0.6 mg/dL (0.2-1.2); Calc. Creatinine Clearance 49 mL/min (70-130); Carbon Dioxide 24 mmol/L (22-29); Chloride 110 mmol/L (98-107); Estimated GFR 81; Globulin 2.2 g/dL (2.4-3.5); Glucose 117 mg/dL (70-105); Potassium 3.3 mmol/L (3.5-5.1); Protein, Total 5.1 g/dL (6.0-8.3); Sodium 140 mmol/L (136-145)
[2022-09-16 06:06] LABS: Magnesium 1.7 mg/dL (1.6-2.6)
[2022-09-16 06:11] LABS: Phosphorus 1.5 mg/dL (2.3-4.7)
[2022-09-16] MEDS ORDERED: Lorazepam 0.5 MG TAB PO PRN (07:07)
[2022-09-16] MEDS ORDERED: Magnesium 2 GM/50 ML(in water) 2 GM in Premix Bag 1 BAG IVPB SCH (08:00)
[2022-09-16] MEDS ORDERED: Potassium Chloride 20 MEQ TAB PO SCH (08:00)
[2022-09-16] MEDS: Enoxaparin Sodium 30 MG/0.3 ML SYRINGE SC SCH (09:12)
[2022-09-16] MEDS: Multivit, Therapeutic 1 TAB PO SCH (09:13)
[2022-09-16] MEDS: Cyanocobalamin (Vitamin B-12) 1,000 MCG TAB PO SCH (09:13)
[2022-09-16] MEDS: Gabapentin 100 MG CAP PO SCH ×3 (09:13→20:14)
[2022-09-16] MEDS: Metoprolol Tartrate 25 MG TAB PO SCH ×2 (09:13→20:13)
[2022-09-16] MEDS: PHOS-NAK 1 PKT PACK PO SCH ×4 (09:14→20:14)
[2022-09-16] MEDS: Folic Acid 1 MG TAB PO SCH (09:14)
[2022-09-16] MEDS: Thiamine 100 MG TAB PO SCH (09:14)
[2022-09-16] MEDS ORDERED: Pregabalin 25 MG CAP PO SCH (09:15)
[2022-09-16 13:27] LABS: Potassium 4.6 mmol/L (3.5-5.1)
[2022-09-16] MEDS: Pregabalin 25 MG CAP PO SCH (20:15)
[2022-09-17] MEDS: Dextrose 5 % And 0.9 % NaCl 1,000 ML IV SCH ×2 (00:46→09:42)
[2022-09-17 08:08] LABS: #Eosinphils 0.2 thou/uL (0.0-0.7); #Lymphocytes 1.1 thou/uL (1.20-3.40); #Monocytes 0.4 thou/uL (0.11-0.59); #Neutrophils 2.6 thou/uL (1.40-6.50); %Basophils 0.5 % (0.0-1.0); %Eosinophils 4.5 % (0.0-10.0); Mean Corpuscular HGB CONC 33.1 g/dL (32.0-36.0); Mean Corpuscular Hemoglobin 40.9 pg (27.0-31.0); Mean Platelet Volume 8.9 fL (7.4-10.4); Platelet Count 160 10x3/uL (130-400); RBC Distribution Width 16.1 % (11.5-14.5); White Blood Cell (WBC) Count 4.4 10x3/uL (4.8-10.8)
[2022-09-17 08:39] LABS: ALT (SGPT) 15 U/L (8-55); AST (SGOT) 42 U/L (5-34); Albumin 2.9 g/dL (3.5-5.0); Alkaline Phosphatase 54 U/L (40-110); Anion Gap 12 mmol/L (10-20); BUN (Urea Nitrogen) 4 mg/dL (9.8-20.1); Bilirubin, Total 0.4 mg/dL (0.2-1.2); Calc. Creatinine Clearance 48 mL/min (70-130); Carbon Dioxide 21 mmol/L (22-29); Chloride 110 mmol/L (98-107); Estimated GFR 80; Globulin 2.4 g/dL (2.4-3.5); Glucose 107 mg/dL (70-105); Magnesium 1.7 mg/dL (1.6-2.6); Potassium 3.2 mmol/L (3.5-5.1); Protein, Total 5.3 g/dL (6.0-8.3); Sodium 140 mmol/L (136-145)
[2022-09-17] MEDS: Pregabalin 25 MG CAP PO SCH ×2 (08:46→20:48)
[2022-09-17] MEDS: Enoxaparin Sodium 30 MG/0.3 ML SYRINGE SC SCH (08:46)
[2022-09-17] MEDS: Metoprolol Tartrate 25 MG TAB PO SCH ×2 (08:47→20:48)
[2022-09-17] MEDS: Gabapentin 100 MG CAP PO SCH ×3 (08:47→20:48)
[2022-09-17] MEDS: Multivit, Therapeutic 1 TAB PO SCH (08:47)
[2022-09-17] MEDS: Cyanocobalamin (Vitamin B-12) 1,000 MCG TAB PO SCH (08:47)
[2022-09-17] MEDS: Thiamine 100 MG TAB PO SCH (08:47)
[2022-09-17] MEDS: Folic Acid 1 MG TAB PO SCH (08:47)
[2022-09-17] MEDS ORDERED: Potassium Chloride 20 MEQ TAB PO SCH (09:15)
[2022-09-17] MEDS ORDERED: Magnesium 2 GM/50 ML(in water) 2 GM in Premix Bag 1 BAG IVPB SCH (09:15)
[2022-09-18 06:53] LABS: #Eosinphils 0.2 thou/uL (0.0-0.7); #Lymphocytes 1.1 thou/uL (1.20-3.40); #Monocytes 0.7 thou/uL (0.11-0.59); #Neutrophils 2.8 thou/uL (1.40-6.50); %Basophils 0.4 % (0.0-1.0); %Eosinophils 4.5 % (0.0-10.0); %Lymphocytes 22.7 % (21.0-51.0); %Monocytes 13.7 % (0.0-10.0); %Neutrophils 58.7 % (42.0-75.0); Mean Corpuscular HGB CONC 33.7 g/dL (32.0-36.0); Mean Corpuscular Hemoglobin 41.8 pg (27.0-31.0); Mean Platelet Volume 8.1 fL (7.4-10.4); Platelet Count 197 10x3/uL (130-400); RBC Distribution Width 15.9 % (11.5-14.5); Red Blood Cell (RBC) Count 2.16 mill/uL (4.20-5.40); White Blood Cell (WBC) Count 4.7 10x3/uL (4.8-10.8)
[2022-09-18 07:34] LABS: ALT (SGPT) 14 U/L (8-55); AST (SGOT) 30 U/L (5-34); Albumin 2.9 g/dL (3.5-5.0); Alkaline Phosphatase 53 U/L (40-110); Anion Gap 10 mmol/L (10-20); BUN (Urea Nitrogen) 5 mg/dL (9.8-20.1); Bilirubin, Total 0.3 mg/dL (0.2-1.2); Calc. Creatinine Clearance 49 mL/min (70-130); Calcium 8.5 mg/dL (7.8-10.44); Carbon Dioxide 24 mmol/L (22-29); Chloride 107 mmol/L (98-107); Estimated GFR 81; Globulin 2.4 g/dL (2.4-3.5); Glucose 116 mg/dL (70-105); Magnesium 1.7 mg/dL (1.6-2.6); Phosphorus 3.5 mg/dL (2.3-4.7); Potassium 3.3 mmol/L (3.5-5.1); Protein, Total 5.3 g/dL (6.0-8.3); Sodium 138 mmol/L (136-145)
[2022-09-18] MEDS ORDERED: Magnesium 2 GM/50 ML(in water) 2 GM in Premix Bag 1 BAG IVPB SCH (08:15)
[2022-09-18] MEDS ORDERED: Potassium Chloride 20 MEQ TAB PO SCH (08:15)
[2022-09-18] MEDS: Cyanocobalamin (Vitamin B-12) 1,000 MCG TAB PO SCH (08:23)
[2022-09-18] MEDS: Folic Acid 1 MG TAB PO SCH (08:23)
[2022-09-18] MEDS: Metoprolol Tartrate 25 MG TAB PO SCH (08:23)
[2022-09-18] MEDS: Gabapentin 100 MG CAP PO SCH (08:23)
[2022-09-18] MEDS: Enoxaparin Sodium 30 MG/0.3 ML SYRINGE SC SCH (08:23)
[2022-09-18] MEDS: Multivit, Therapeutic 1 TAB PO SCH (08:24)
[2022-09-18] MEDS: Thiamine 100 MG TAB PO SCH (08:24)
[2022-09-18] MEDS: Pregabalin 25 MG CAP PO SCH (08:24)
[2022-09-18 08:56] VITALS: BP 138/82; TEMP 97.5
== END 2022-09-18 14:48 | disposition home or self-care (01) | DRG 640 ==
LOC: ERS 21:38 → ERHOLD 09-13 05:10 → 2SW 09-13 14:54 → OBSVTOIN 09-15 13:38 → T4-B 09-16 17:25
PROVIDERS: ADMIT Internal Medicine; ATTEND Internal Medicine
DX: E16.2 Hypoglycemia, unspecified (principal); E43 Unspecified severe protein-calorie malnutrition; E87.20 Acidosis, unspecified; Z68.1 Body mass index [BMI] 19.9 or less, adult; I10 Essential (primary) hypertension; F31.9 Bipolar disorder, unspecified; F41.9 Anxiety disorder, unspecified; Z20.822 Contact with and (suspected) exposure to COVID-19; E83.42 Hypomagnesemia; E87.6 Hypokalemia; Y90.8 Blood alcohol level of 240 mg/100 ml or more; D64.9 Anemia, unspecified; F10.229 Alcohol dependence with intoxication, unspecified; G62.9 Polyneuropathy, unspecified; Z91.14 Patient's other noncompliance with medication regimen; Z79.899 Other long term (current) drug therapy
CPT/HCPCS: 36415; 36416; 71045; 76705; 80048; 80053; 80306; 80307; 81003; 81015; 82010; 82550; 83036; 83525; 83605; 83735; 84100; 84443; 84681; 85025; 93005; 96360; 96361; 96372; 96374; 96375; 96376; G0378; J1650; J2405; J3411; J3475; J7042

== ENCOUNTER 2022-10-24 23:08 | Emergency (ER) | payer BC ==
[2022-10-25 00:08] LABS: Bacteria/HPF 2+ HPF (None Seen); Bilirubin Negative (Negative); Blood, Urine Negative (Negative); Clarity Clear (Clear); Glucose, Urine (Dipstick) Normal (Negative); Ketone, Urine Negative (Negative); Leukocyte 75 Leu/uL (Negative); Nitrite Negative (Negative); Protein, Urine (Dipstick) Negative (Neg-Trace); RBC/HPF 0-3 HPF (0-3); Specific Gravity, Urine 1.009 (1.002-1.036); Squamous Epithelial 0-3 HPF (0-3); Urobilinogen Normal mg/dL (Less than 2); pH, Urine 6.5 (5.0-9.0)
[2022-10-25 00:13] LABS: Amphetamine Not Detected (NotDetected); Barbiturates Screen Not Detected (NotDetected); Benzodiazepine Screen Not Detected (NotDetected); Cocaine Metabolite Screen Not Detected (NotDetected); Methadone Not Detected (NotDetected); Methamphetamine Not Detected (NotDetected); Opiate Screen Not Detected (NotDetected); Oxycodone Screen Not Detected (NotDetected); Phencyclidine (PCP) Not Detected (NotDetected); THC/Cannabinoid Screen Not Detected (NotDetected); Tricyclic Screen Not Detected (NotDetected)
[2022-10-25 00:21] LABS: #Basophils 0.1 thou/uL (0.0-0.2); #Eosinphils 0.2 thou/uL (0.0-0.7); #Lymphocytes 2.1 thou/uL (1.20-3.40); #Monocytes 0.4 thou/uL (0.11-0.59); #Neutrophils 1.6 thou/uL (1.40-6.50); %Eosinophils 4.8 % (0.0-10.0); %Neutrophils 36.2 % (42.0-75.0); Hemoglobin 12.1 g/dL (12.0-16.0); Mean Corpuscular HGB CONC 34.4 g/dL (32.0-36.0); Mean Platelet Volume 7.7 fL (7.4-10.4); Platelet Count 246 10x3/uL (130-400); RBC Distribution Width 15.4 % (11.5-14.5); Red Blood Cell (RBC) Count 3.03 mill/uL (4.20-5.40); White Blood Cell (WBC) Count 4.5 10x3/uL (4.8-10.8)
[2022-10-25 00:39] LABS: Acetaminophen Less than 10.0 mcg/mL (10.0-30.0); Alcohol 359 mg/dL (Less than 10); Salicylate Less than 8.0 mg/dL (15.0-30.0)
[2022-10-25 00:40] LABS: ALT (SGPT) 16 U/L (8-55); AST (SGOT) 69 U/L (5-34); Albumin 3.9 g/dL (3.5-5.0); Alkaline Phosphatase 141 U/L (40-110); Anion Gap 17 mmol/L (10-20); BUN (Urea Nitrogen) 13 mg/dL (9.8-20.1); Bilirubin, Total 1.8 mg/dL (0.2-1.2); Calc. Creatinine Clearance 0 mL/min (70-130); Calcium 9.1 mg/dL (7.8-10.44); Carbon Dioxide 25 mmol/L (22-29); Chloride 105 mmol/L (98-107); Estimated GFR 65; Globulin 3.6 g/dL (2.4-3.5); Glucose 73 mg/dL (70-105); Potassium 4.3 mmol/L (3.5-5.1); Protein, Total 7.5 g/dL (6.0-8.3); Sodium 143 mmol/L (136-145)
[2022-10-25] MEDS ORDERED: Metoprolol Tartrate 25 MG TAB PO SCH (06:45)
[2022-10-25] MEDS ORDERED: Gabapentin 100 MG CAP PO SCH ×2 (06:45→12:45)
[2022-10-25] MEDS ORDERED: chlordiazePOXIDE HCl 25 MG CAP PO SCH (12:45)
== END 2022-10-25 18:24 | disposition home or self-care (01) ==
LOC: ERS 23:08
DX: R45.851 Suicidal ideations (principal); F10.129 Alcohol abuse with intoxication, unspecified; E11.9 Type 2 diabetes mellitus without complications; I10 Essential (primary) hypertension; D72.819 Decreased white blood cell count, unspecified; Y90.8 Blood alcohol level of 240 mg/100 ml or more
CPT/HCPCS: 36415; 36416; 80053; 80306; 80307; 81003; 81015; 84443; 85025; 99285

== ENCOUNTER 2024-04-05 19:37 | Inpatient (IN) | payer BC, OTHER ==
[~2024-04-05 19:37] MED LIST: Iopamidol-370 76% 500 ML MDV (1 ML CHARGE) ONE
[2024-04-05] MEDS ORDERED: fentaNYL 50 mcg/mL 1 mL Vial ONE (20:35)
[2024-04-05] MEDS ORDERED: Ondansetron PF 4 MG/2 ML Vial ONE (20:35)
[2024-04-05] MEDS ORDERED: LORazepam 2 MG/ML SYR.(CARPUJECT) ONE (20:37)
[2024-04-05 20:44] LABS: Actual Bicarbonate (HCO3v) 17.7 mEq/L (22-28); Base Excess -7.1 mEq/L (-2.0 to +3.0); Calcium, Ionized (venous) 1.11 mmol/L (1.16-1.32); Chloride (VBG) 97 mmol/L (98-106); Hematocrit-VBG 42 % (36.0-47.0); Hemoglobin (Hb) 14.3 g/dL (11.7-16.0); Potassium (VBG) 3.59 mmol/L (3.70-5.30); Sodium 144 mmol/L (133-146)
[2024-04-05 20:58] LABS: #Basophils Less than 0.03 10x3/uL (0.0-0.2); #Eosinphils Less than 0.03 10x3/uL (0.0-0.7); %Basophils 0.2 % (0.0-1.0); %Eosinophils 0.2 % (0.0-10.0); %Monocytes 5.3 % (0.0-10.0); %Neutrophils 88.8 % (42.0-75.0); Hematocrit 38.1 % (36.0-47.0); Hemoglobin 13.3 g/dL (12.0-16.0); Mean Corpuscular HGB CONC 34.9 g/dL (32.0-36.0); Mean Corpuscular Hemoglobin 38.4 pg (27.0-31.0); Mean Corpuscular Volume 110.1 fL (78.0-98.0); Mean Platelet Volume 11.7 fL (7.4-10.4); Platelet Count 152 10x3/uL (130-400); RBC Distribution Width 13.3 % (11.5-14.5); Red Blood Cell (RBC) Count 3.46 mill/uL (4.20-5.40)
[2024-04-05 21:10] LABS: ALT (SGPT) 23 U/L (8-55); AST (SGOT) 26 U/L (5-34); Albumin 4.8 g/dL (3.5-5.0); Alkaline Phosphatase 54 U/L (40-110); Anion Gap 31 mmol/L (10-20); BUN (Urea Nitrogen) 14 mg/dL (9.8-20.1); Bilirubin, Total 2.4 mg/dL (0.2-1.2); Calc. Creatinine Clearance 0 mL/min (70-130); Calcium 10.2 mg/dL (7.8-10.44); Carbon Dioxide 15 mmol/L (22-29); Chloride 99 mmol/L (98-107); Estimated GFR 28; Globulin 3.5 g/dL (2.4-3.5); Glucose 253 mg/dL (70-105); Lipase 38 U/L (8-78); Magnesium 1.5 mg/dL (1.6-2.6); Potassium 3.6 mmol/L (3.5-5.1); Protein, Total 8.3 g/dL (6.0-8.3); Sodium 141 mmol/L (136-145)
[2024-04-05 21:11] LABS: Acetaminophen Less than 10 mcg/mL (10.0-30.0); Alcohol Less than 10.0 mg/dL (Less than 10); Salicylate Less than 8.0 mg/dL (15.0-30.0); Troponin I 0.032 ng/mL (< 0.028)
[2024-04-05] MEDS ORDERED: Magnesium 2 GM/50 ML BAG (IN WATER) ONE (21:40)
[2024-04-05 23:42] VITALS: BMI 14.9
[2024-04-06] MEDS ORDERED: Acetaminophen 650 MG Suppository PR PRN (00:14)
[2024-04-06] MEDS ORDERED: Ondansetron ODT 4 MG TAB PO PRN (00:14)
[2024-04-06] MEDS ORDERED: Ondansetron PF 4 MG/2 ML Vial IVP PRN (00:14)
[2024-04-06] MEDS ORDERED: Electrolyte Replacement Protocol 1 EACH FS SCH (00:15)
[2024-04-06] MEDS: Sodium Chloride 0.9% 1,000 ML IV SCH ×2 (00:32→22:48)
[2024-04-06] MEDS ORDERED: Multivit, Adult Inj 10 ML VIAL IV SCH (01:45)
[2024-04-06] MEDS: Multivitamins, Adult 10 ML in Sodium Chloride 0.9% 500 ML IV SCH (02:11)
[2024-04-06 05:02] LABS: Lactic Acid 0.9 mmol/L (0.5-2.2)
[2024-04-06 05:04] LABS: Phosphorus 1.8 mg/dL (2.3-4.7)
[2024-04-06 05:10] LABS: Troponin I 0.054 ng/mL (< 0.028)
[2024-04-06 05:44] LABS: #Basophils Less than 0.03 10x3/uL (0.0-0.2); #Eosinphils Less than 0.03 10x3/uL (0.0-0.7); %Basophils 0.2 % (0.0-1.0); %Lymphocytes 10.2 % (21.0-51.0); %Monocytes 7.6 % (0.0-10.0); %Neutrophils 81.5 % (42.0-75.0); Hematocrit 29.5 % (36.0-47.0); Hemoglobin 10.5 g/dL (12.0-16.0); Mean Corpuscular HGB CONC 35.6 g/dL (32.0-36.0); Mean Corpuscular Hemoglobin 37.5 pg (27.0-31.0); Mean Corpuscular Volume 105.4 fL (78.0-98.0); Platelet Count 202 10x3/uL (130-400); RBC Distribution Width 13.2 % (11.5-14.5)
[2024-04-06] MEDS ORDERED: Glucagon 1 MG/ML KIT IM PRN (06:04)
[2024-04-06] MEDS ORDERED: Insulin Regular, Human 100 UNIT/ML 10 ML VIAL SC PRN ×2 (06:04)
[2024-04-06] MEDS ORDERED: Dextrose 5% in Water 1,000 ML IV PRN (06:04)
[2024-04-06] MEDS ORDERED: Dextrose 50% Abboject 50 ML SYRINGE SLOW IVP PRN (06:04)
[2024-04-06] MEDS: Acetaminophen 325 MG TAB PO SCH (06:24)
[2024-04-06 06:28] LABS: Anion Gap 20 mmol/L (10-20); BUN (Urea Nitrogen) 11 mg/dL (9.8-20.1); Calc. Creatinine Clearance 35 mL/min (70-130); Carbon Dioxide 20 mmol/L (22-29); Chloride 105 mmol/L (98-107); Estimated GFR 53; Glucose 134 mg/dL (70-105); Magnesium 1.9 mg/dL (1.6-2.6); Potassium 3.8 mmol/L (3.5-5.1); Sodium 141 mmol/L (136-145)
[2024-04-06 07:46] LABS: Bacteria/HPF None Seen HPF (None Seen); Bilirubin Negative (Negative); Blood, Urine Negative (Negative); Clarity Clear (Clear); Glucose, Urine (Dipstick) Normal (Negative); Ketone, Urine 10 mg/dL (Negative); Leukocyte Negative Leu/uL (Negative); Nitrite Negative (Negative); Protein, Urine (Dipstick) Negative (Neg-Trace); RBC/HPF 0-3 HPF (0-3); Specific Gravity, Urine 1.019 (1.002-1.036); Squamous Epithelial 0-3 HPF (0-3); Urobilinogen Normal mg/dL (Less than 2); WBC/HPF None Seen HPF (0-3)
[2024-04-06] MEDS: Enoxaparin 30 MG (0.3 mL) SYRINGE SC SCH (08:16)
[2024-04-06] MEDS: Pantoprazole 40 MG VIAL IVP SCH (08:16)
[2024-04-06] MEDS: PHOS-NAK 1 PKT PACK PO SCH (08:16)
[2024-04-06] MEDS: Folic Acid 1 MG TAB PO SCH (08:16)
[2024-04-06] MEDS: Magnesium 2 GM/50 ML(in water) 2 GM in Premix 1 BAG IVPB SCH (08:16)
[2024-04-06 12:36] VITALS: BMI 14.9
[2024-04-06 16:20] LABS: Amphetamine Not Detected (NotDetected); Barbiturates Screen Not Detected (NotDetected); Benzodiazepine Screen Not Detected (NotDetected); Cocaine Metabolite Screen Not Detected (NotDetected); Methadone Not Detected (NotDetected); Methamphetamine Not Detected (NotDetected); Opiate Screen Not Detected (NotDetected); Oxycodone Screen Not Detected (NotDetected); Phencyclidine (PCP) Not Detected (NotDetected); THC/Cannabinoid Screen Not Detected (NotDetected); Tricyclic Screen Not Detected (NotDetected)
[2024-04-06 16:53] LABS: Hemoglobin A1c 4.7 % (4.0-6.0)
[2024-04-06 19:01] LABS: Influenza A by NAA Not Detected (NotDetected); Influenza B by NAA Not Detected (NotDetected); RSV by NAA Not Detected (NotDetected); SARS-CoV-2 NAA Rapid Test Not Detected (NotDetected)
[2024-04-06 19:29] LABS: Anion Gap 23 mmol/L (10-20); BUN (Urea Nitrogen) 9 mg/dL (9.8-20.1); Calc. Creatinine Clearance 38 mL/min (70-130); Calcium 7.9 mg/dL (7.8-10.44); Carbon Dioxide 16 mmol/L (22-29); Chloride 105 mmol/L (98-107); Estimated GFR 59; Glucose 79 mg/dL (70-105); Potassium 4.3 mmol/L (3.5-5.1); Sodium 140 mmol/L (136-145)
[2024-04-06] MEDS: Gabapentin 100 MG CAP PO SCH (20:50)
[2024-04-06] MEDS: Metoprolol Tartrate 25 MG TAB PO SCH (20:51)
[2024-04-06] MEDS: Sodium Chloride 0.9% 500 ML IV SCH (22:46)
[2024-04-06 23:09] LABS: Lactic Acid 0.9 mmol/L (0.5-2.2)
[2024-04-07] MEDS: Sodium Bicarb 50 mEq/50 ML VIAL IVP SCH (00:19)
[2024-04-07] MEDS ORDERED: Acetaminophen 325 MG TAB PO PRN (02:54)
[2024-04-07 04:48] LABS: #Basophils Less than 0.03 10x3/uL (0.0-0.2); %Basophils 0.3 % (0.0-1.0); %Eosinophils 0.9 % (0.0-10.0); %Lymphocytes 26.7 % (21.0-51.0); %Monocytes 5.8 % (0.0-10.0); Hematocrit 28.4 % (36.0-47.0); Mean Corpuscular HGB CONC 35.2 g/dL (32.0-36.0); Mean Corpuscular Hemoglobin 37.5 pg (27.0-31.0); Mean Corpuscular Volume 106.4 fL (78.0-98.0); Mean Platelet Volume 12.4 fL (7.4-10.4); Platelet Count 170 10x3/uL (130-400); Red Blood Cell (RBC) Count 2.67 mill/uL (4.20-5.40)
[2024-04-07 05:11] LABS: ALT (SGPT) 14 U/L (8-55); AST (SGOT) 27 U/L (5-34); Albumin 3.1 g/dL (3.5-5.0); Alkaline Phosphatase 32 U/L (40-110); Anion Gap 15 mmol/L (10-20); BUN (Urea Nitrogen) 8 mg/dL (9.8-20.1); Bilirubin, Direct 0.3 mg/dL (0.1-0.3); Bilirubin, Total 1.4 mg/dL (0.2-1.2); Calc. Creatinine Clearance 42 mL/min (70-130); Calcium 7.9 mg/dL (7.8-10.44); Carbon Dioxide 25 mmol/L (22-29); Chloride 104 mmol/L (98-107); Estimated GFR 66; Glucose 88 mg/dL (70-105); Magnesium 1.5 mg/dL (1.6-2.6); Potassium 3.5 mmol/L (3.5-5.1); Sodium 140 mmol/L (136-145)
[2024-04-07] MEDS: Magnesium 2 GM/50 ML(in water) 2 GM in Premix 1 BAG IVPB SCH ×2 (06:06→14:32)
[2024-04-07] MEDS: Amlodipine 5 MG TAB PO SCH (08:04)
[2024-04-07] MEDS: Potassium Chloride 20 MEQ TAB PO SCH ×2 (08:04→10:33)
[2024-04-07] MEDS ORDERED: Potassium Chloride 10 MEQ TAB PO SCH (09:00)
[2024-04-07] MEDS: Multivitamins, Adult 10 ML, Folic Acid 1 MG, Thiamine HCl 100 MG, Admixture Fee 1 EACH ... IV SCH (16:02)
[2024-04-08 05:19] LABS: Anion Gap 15 mmol/L (10-20); BUN (Urea Nitrogen) 7 mg/dL (9.8-20.1); Calc. Creatinine Clearance 39 mL/min (70-130); Calcium 8.4 mg/dL (7.8-10.44); Carbon Dioxide 21 mmol/L (22-29); Chloride 107 mmol/L (98-107); Estimated GFR 61; Glucose 94 mg/dL (70-105); Magnesium 2.1 mg/dL (1.6-2.6); Potassium 3.3 mmol/L (3.5-5.1); Sodium 140 mmol/L (136-145)
[2024-04-08 06:19] LABS: #Basophils 0.04 10x3/uL (0.0-0.2); %Basophils 0.5 % (0.0-1.0); %Lymphocytes 21.3 % (21.0-51.0); %Monocytes 6.9 % (0.0-10.0); %Neutrophils 69.6 % (42.0-75.0); Hematocrit 33.2 % (36.0-47.0); Hemoglobin 11.4 g/dL (12.0-16.0); Mean Corpuscular HGB CONC 34.3 g/dL (32.0-36.0); Mean Corpuscular Volume 110.7 fL (78.0-98.0); Mean Platelet Volume 11.9 fL (7.4-10.4); Platelet Count 149 10x3/uL (130-400); RBC Distribution Width 13.2 % (11.5-14.5)
[2024-04-08] MEDS: Potassium Chloride 20 MEQ TAB PO SCH (08:46)
[2024-04-08 16:13] VITALS: BP 125/89; TEMP 97.6
== END 2024-04-08 18:18 | disposition home or self-care (01) | DRG 896 ==
LOC: ERS 19:37 → IMCU/EMU 22:40 → 2NO 04-07 21:12
PROVIDERS: ADMIT Student in an Organized Health Care Education/Training Program; ATTEND Family Medicine
DX: F10.139 Alcohol abuse with withdrawal, unspecified (principal); E43 Unspecified severe protein-calorie malnutrition; E87.29 Other acidosis; N17.9 Acute kidney failure, unspecified; Z68.1 Body mass index [BMI] 19.9 or less, adult; I10 Essential (primary) hypertension; F20.9 Schizophrenia, unspecified; F10.10 Alcohol abuse, uncomplicated; E83.42 Hypomagnesemia; E11.9 Type 2 diabetes mellitus without complications; E87.6 Hypokalemia; E83.39 Other disorders of phosphorus metabolism; Z79.899 Other long term (current) drug therapy; Z71.41 Alcohol abuse counseling and surveillance of alcoholic
CPT/HCPCS: 0241U; 36415; 36416; 71045; 74177; 80048; 80053; 80076; 80306; 80307; 81001; 82010; 82805; 83036; 83605; 83690; 83735; 84100; 84484; 85025; 93005; 96361; 96365; 96375; C9113; J1650; J2060; J2405; J3010; J3411; J3475; J7030; J7042; J7050; Q9967

== ENCOUNTER 2024-05-07 20:39 | Inpatient (IN) | payer BC, OTHER ==
[2024-05-07 23:07] VITALS: BMI 14.5
[2024-05-07] MEDS ORDERED: Acetaminophen 650 MG Suppository PR PRN (23:26)
[2024-05-07] MEDS ORDERED: Ondansetron ODT 4 MG TAB PO PRN (23:26)
[2024-05-07] MEDS ORDERED: Acetaminophen 325 MG TAB PO PRN (23:26)
[2024-05-07] MEDS ORDERED: Ondansetron PF 4 MG/2 ML Vial IVP PRN (23:26)
[2024-05-07] MEDS ORDERED: Lorazepam 1 MG TAB PO PRN (23:30)
[2024-05-07] MEDS ORDERED: Electrolyte Replacement Protocol 1 EACH FS PRN (23:30)
[2024-05-08] MEDS: Thiamine HCl 200 MG/2 ML VIAL SLOW IVP SCH (00:27)
[2024-05-08] MEDS: Lorazepam 1 MG TAB PO SCH (00:27)
[2024-05-08] MEDS: Sodium Chloride 0.9% 1,000 ML IV SCH (00:28)
[2024-05-08 00:49] LABS: Lactic Acid 3.1 mmol/L (0.5-2.2)
[2024-05-08 00:54] LABS: Anion Gap 21 mmol/L (10-20); BUN (Urea Nitrogen) 5 mg/dL (9.8-20.1); Calc. Creatinine Clearance 38 mL/min (70-130); Calcium 9.4 mg/dL (7.8-10.44); Carbon Dioxide 19 mmol/L (22-29); Chloride 102 mmol/L (98-107); Estimated GFR 60; Glucose 107 mg/dL (70-105); Magnesium 1.3 mg/dL (1.6-2.6); Phosphorus 2.1 mg/dL (2.3-4.7); Potassium 3.5 mmol/L (3.5-5.1); Sodium 138 mmol/L (136-145)
[2024-05-08 04:48] LABS: #Basophils Less than 0.03 10x3/uL (0.0-0.2); %Basophils 0.2 % (0.0-1.0); %Eosinophils 0.7 % (0.0-10.0); %Lymphocytes 27.5 % (21.0-51.0); %Monocytes 10.8 % (0.0-10.0); %Neutrophils 60.5 % (42.0-75.0); Hematocrit 28.7 % (36.0-47.0); Mean Corpuscular HGB CONC 34.8 g/dL (32.0-36.0); Mean Corpuscular Hemoglobin 38.2 pg (27.0-31.0); Mean Corpuscular Volume 109.5 fL (78.0-98.0); Mean Platelet Volume 10.4 fL (7.4-10.4); Platelet Count 208 10x3/uL (130-400); RBC Distribution Width 14.4 % (11.5-14.5); Red Blood Cell (RBC) Count 2.62 mill/uL (4.20-5.40)
[2024-05-08 05:06] LABS: ALT (SGPT) 14 U/L (8-55); AST (SGOT) 39 U/L (5-34); Albumin 3.5 g/dL (3.5-5.0); Alkaline Phosphatase 67 U/L (40-110); Anion Gap 14 mmol/L (10-20); BUN (Urea Nitrogen) 5 mg/dL (9.8-20.1); Bilirubin, Total 3.4 mg/dL (0.2-1.2); Calc. Creatinine Clearance 47 mL/min (70-130); Carbon Dioxide 23 mmol/L (22-29); Chloride 106 mmol/L (98-107); Estimated GFR 79; Globulin 2.8 g/dL (2.4-3.5); Glucose 137 mg/dL (70-105); Phosphorus 2.4 mg/dL (2.3-4.7); Potassium 3.4 mmol/L (3.5-5.1); Protein, Total 6.3 g/dL (6.0-8.3); Sodium 140 mmol/L (136-145)
[2024-05-08] MEDS: Sodium Chloride 0.9% 500 ML IV SCH (05:59)
[2024-05-08 07:50] LABS: Lactic Acid 1.2 mmol/L (0.5-2.2)
[2024-05-08 08:45] LABS: Amphetamine Not Detected (NotDetected); Barbiturates Screen Not Detected (NotDetected); Benzodiazepine Screen Detected (NotDetected); Cocaine Metabolite Screen Not Detected (NotDetected); Methadone Not Detected (NotDetected); Methamphetamine Not Detected (NotDetected); Opiate Screen Not Detected (NotDetected); Oxycodone Screen Not Detected (NotDetected); Phencyclidine (PCP) Not Detected (NotDetected); THC/Cannabinoid Screen Not Detected (NotDetected); Tricyclic Screen Not Detected (NotDetected)
[2024-05-08] MEDS: Magnesium Sulfate In Water 4 GM in Premix 1 BAG IVPB SCH (09:14)
[2024-05-08] MEDS: Potassium Chloride 20 MEQ TAB PO SCH (09:15)
[2024-05-08] MEDS: cloNIDine 0.1mg/24 Hour PATCH TD SCH (09:15)
[2024-05-08] MEDS: Multivit, Therapeutic 1 TAB PO SCH (09:15)
[2024-05-08] MEDS: Folic Acid 1 MG TAB PO SCH (09:15)
[2024-05-08] MEDS: Metoprolol Tartrate 25 MG TAB PO SCH ×2 (14:12→22:35)
[2024-05-08] MEDS: Gabapentin 100 MG CAP PO SCH (14:13)
[2024-05-08] MEDS: NS 0.9% w/ 20 MEQ KCL 1,000 ML/1,000 ML BAG IV SCH (14:22)
[2024-05-08] MEDS: Lorazepam 2 MG/ML VIAL IM PRN (20:23)
[2024-05-08] MEDS ORDERED: Lorazepam 1 MG TAB PO PRN (23:30)
[2024-05-09 05:15] LABS: #Basophils 0.03 10x3/uL (0.0-0.2); %Basophils 0.6 % (0.0-1.0); %Eosinophils 1.7 % (0.0-10.0); %Lymphocytes 32.6 % (21.0-51.0); %Neutrophils 54.9 % (42.0-75.0); Hematocrit 33.7 % (36.0-47.0); Hemoglobin 11.2 g/dL (12.0-16.0); Mean Corpuscular HGB CONC 33.2 g/dL (32.0-36.0); Mean Corpuscular Hemoglobin 37.2 pg (27.0-31.0); Mean Platelet Volume 10.7 fL (7.4-10.4); Platelet Count 187 10x3/uL (130-400); RBC Distribution Width 14.4 % (11.5-14.5); Red Blood Cell (RBC) Count 3.01 mill/uL (4.20-5.40)
[2024-05-09 05:47] LABS: Macrocytosis SLIGHT = 6-15 cells HPF (0-5); Platelet Adequacy Comment Platelets Normal
[2024-05-09 06:08] LABS: ALT (SGPT) 14 U/L (8-55); AST (SGOT) 28 U/L (5-34); Albumin 3.6 g/dL (3.5-5.0); Alkaline Phosphatase 69 U/L (40-110); Anion Gap 12 mmol/L (10-20); BUN (Urea Nitrogen) 5 mg/dL (9.8-20.1); Bilirubin, Total 2.9 mg/dL (0.2-1.2); Calc. Creatinine Clearance 49 mL/min (70-130); Carbon Dioxide 20 mmol/L (22-29); Chloride 111 mmol/L (98-107); Estimated GFR 83; Globulin 2.9 g/dL (2.4-3.5); Glucose 78 mg/dL (70-105); Magnesium 2.1 mg/dL (1.6-2.6); Phosphorus 2.1 mg/dL (2.3-4.7); Potassium 3.6 mmol/L (3.5-5.1); Protein, Total 6.5 g/dL (6.0-8.3); Sodium 139 mmol/L (136-145)
[2024-05-09] MEDS ORDERED: Amlodipine 5 MG TAB PO SCH (09:00)
[2024-05-09] MEDS ORDERED: traMADol HCl 50 MG TAB PO PRN (09:44)
[2024-05-09 11:31] VITALS: BMI 14.5
[2024-05-09 11:46] VITALS: BP 123/91; TEMP 97.9
[2024-05-09] MEDS ORDERED: Lorazepam 0.5 MG TAB PO SCH (23:30)
[2024-05-09] MEDS ORDERED: Lorazepam 1 MG TAB PO PRN (23:30)
[2024-05-10] MEDS ORDERED: Thiamine 100 MG TAB PO SCH (23:30)
[2024-05-10] MEDS ORDERED: Lorazepam 0.5 MG TAB PO PRN (23:30)
== END 2024-05-09 14:52 | disposition home or self-care (01) | DRG 897 ==
LOC: INTOOBSV 22:29 → 2NO 22:29 → OBSVTOIN 05-09 09:43
PROVIDERS: ADMIT Student in an Organized Health Care Education/Training Program; ATTEND Family Medicine
DX: F10.139 Alcohol abuse with withdrawal, unspecified (principal); E87.29 Other acidosis; E87.6 Hypokalemia; I10 Essential (primary) hypertension; Z79.899 Other long term (current) drug therapy
CPT/HCPCS: 36415; 36416; 80053; 80306; 82010; 83605; 83735; 84100; 85025; 93005; 93010; 96372; 96374; 96375; G0378; J2060; J3411; J3475; J3480; J7030

== ENCOUNTER 2024-05-27 14:20 | Inpatient (IN) | payer BC, OTHER ==
[2024-05-27 17:03] VITALS: BMI 16.0
[2024-05-27] MEDS ORDERED: Ondansetron ODT 4 MG TAB PO PRN (18:05)
[2024-05-27] MEDS ORDERED: Lorazepam 1 MG TAB PO PRN (18:10)
[2024-05-27] MEDS ORDERED: Lorazepam 2 MG/ML VIAL IM PRN (18:10)
[2024-05-27] MEDS ORDERED: Electrolyte Replacement Protocol 1 EACH FS SCH (18:15)
[2024-05-27] MEDS: Sodium Chloride 0.9% 1,000 ML IV SCH (18:40)
[2024-05-27] MEDS ORDERED: Electrolyte Replacement Protocol FS PRN (19:45)
[2024-05-27] MEDS ORDERED: Dextrose 5% in Water 1,000 ML IV PRN (19:58)
[2024-05-27] MEDS ORDERED: Dextrose 50% Abboject 50 ML SYRINGE SLOW IVP PRN (19:58)
[2024-05-27] MEDS ORDERED: Insulin Lispro 100 UNIT/ML 10 ML VIAL SC PRN ×2 (19:58)
[2024-05-27] MEDS ORDERED: Glucagon 1 MG/ML KIT IM PRN (19:58)
[2024-05-27] MEDS ORDERED: Thiamine HCl 200 MG/2 ML VIAL SLOW IVP SCH (20:00)
[2024-05-27] MEDS: Lorazepam 1 MG TAB PO SCH (20:34)
[2024-05-27] MEDS: Magnesium 2 GM/50 ML(in water) 2 GM in Premix 1 BAG IVPB SCH ×2 (20:34→22:02)
[2024-05-27] MEDS: Thiamine HCl 200 MG/2 ML VIAL SLOW IVP SCH (20:34)
[2024-05-27] MEDS: Ondansetron PF 4 MG/2 ML Vial IVP PRN (20:53)
[2024-05-27 20:57] LABS: #Basophils Less than 0.03 10x3/uL (0.0-0.2); #Eosinphils Less than 0.03 10x3/uL (0.0-0.7); %Basophils 0.2 % (0.0-1.0); %Lymphocytes 9.1 % (21.0-51.0); %Monocytes 6.9 % (0.0-10.0); %Neutrophils 83.5 % (42.0-75.0); Hematocrit 34.1 % (36.0-47.0); Mean Corpuscular HGB CONC 32.3 g/dL (32.0-36.0); Mean Corpuscular Hemoglobin 38.9 pg (27.0-31.0); Mean Corpuscular Volume 120.5 fL (78.0-98.0); Mean Platelet Volume 10.4 fL (7.4-10.4); Platelet Count 178 10x3/uL (130-400); Red Blood Cell (RBC) Count 2.83 mill/uL (4.20-5.40)
[2024-05-27 20:58] LABS: ALT (SGPT) 37 U/L (8-55); AST (SGOT) 116 U/L (5-34); Albumin 3.4 g/dL (3.5-5.0); Alkaline Phosphatase 66 U/L (40-110); Anion Gap 25 mmol/L (10-20); BUN (Urea Nitrogen) 10 mg/dL (9.8-20.1); Bilirubin, Direct 0.7 mg/dL (0.1-0.3); Bilirubin, Total 1.8 mg/dL (0.2-1.2); Calc. Creatinine Clearance 37 mL/min (70-130); Calcium 7.8 mg/dL (7.8-10.44); Carbon Dioxide 15 mmol/L (22-29); Chloride 109 mmol/L (98-107); Estimated GFR 52; Glucose 195 mg/dL (70-105); Magnesium 1.2 mg/dL (1.6-2.6); Potassium 4.2 mmol/L (3.5-5.1); Protein, Total 6.4 g/dL (6.0-8.3); Sodium 145 mmol/L (136-145)
[2024-05-27] MEDS: Acetaminophen 325 MG TAB PO SCH (23:29)
[2024-05-28 00:35] LABS: Amphetamine Not Detected (NotDetected); Barbiturates Screen Not Detected (NotDetected); Benzodiazepine Screen Detected (NotDetected); Cocaine Metabolite Screen Not Detected (NotDetected); Methadone Not Detected (NotDetected); Methamphetamine Not Detected (NotDetected); Opiate Screen Not Detected (NotDetected); Oxycodone Screen Not Detected (NotDetected); Phencyclidine (PCP) Not Detected (NotDetected); THC/Cannabinoid Screen Not Detected (NotDetected); Tricyclic Screen Not Detected (NotDetected)
[2024-05-28 05:51] LABS: Anion Gap 22 mmol/L (10-20); BUN (Urea Nitrogen) 9 mg/dL (9.8-20.1); Calc. Creatinine Clearance 47 mL/min (70-130); Calcium 8.1 mg/dL (7.8-10.44); Carbon Dioxide 17 mmol/L (22-29); Chloride 109 mmol/L (98-107); Estimated GFR 69; Glucose 120 mg/dL (70-105); Magnesium 2.5 mg/dL (1.6-2.6); Potassium 3.9 mmol/L (3.5-5.1); Sodium 144 mmol/L (136-145)
[2024-05-28 06:48] LABS: #Basophils Less than 0.03 10x3/uL (0.0-0.2); #Eosinphils Less than 0.03 10x3/uL (0.0-0.7); %Basophils 0.2 % (0.0-1.0); %Lymphocytes 13.9 % (21.0-51.0); %Monocytes 6.9 % (0.0-10.0); %Neutrophils 78.7 % (42.0-75.0); Hematocrit 31.6 % (36.0-47.0); Hemoglobin 10.6 g/dL (12.0-16.0); Mean Corpuscular HGB CONC 33.5 g/dL (32.0-36.0); Mean Corpuscular Hemoglobin 38.5 pg (27.0-31.0); Mean Corpuscular Volume 114.9 fL (78.0-98.0); Platelet Count 161 10x3/uL (130-400); RBC Distribution Width 14.9 % (11.5-14.5); Red Blood Cell (RBC) Count 2.75 mill/uL (4.20-5.40)
[2024-05-28] MEDS: Multivit, Therapeutic 1 TAB PO SCH (10:05)
[2024-05-28] MEDS: Folic Acid 1 MG TAB PO SCH (10:05)
[2024-05-28 12:17] VITALS: BMI 16.0
[2024-05-28 16:42] VITALS: BP 137/106; TEMP 98.1
[2024-05-28] MEDS ORDERED: Lorazepam 1 MG TAB PO PRN (18:10)
[2024-05-29] MEDS ORDERED: Lorazepam 1 MG TAB PO PRN (18:10)
[2024-05-29] MEDS ORDERED: Lorazepam 0.5 MG TAB PO SCH (20:00)
[2024-05-30] MEDS ORDERED: Lorazepam 0.5 MG TAB PO PRN (18:10)
[2024-05-30] MEDS ORDERED: Thiamine 100 MG TAB PO SCH (20:00)
== END 2024-05-28 17:00 | disposition home or self-care (01) | DRG 897 ==
LOC: SJX 14:20 → 2NO 16:45
PROVIDERS: ADMIT Internal Medicine; ATTEND Family Medicine
DX: F10.129 Alcohol abuse with intoxication, unspecified (principal); E87.29 Other acidosis; E44.0 Moderate protein-calorie malnutrition; Z68.1 Body mass index [BMI] 19.9 or less, adult; E11.9 Type 2 diabetes mellitus without complications; I10 Essential (primary) hypertension; M25.551 Pain in right hip; Z79.899 Other long term (current) drug therapy; R53.83 Other fatigue; E11.40 Type 2 diabetes mellitus with diabetic neuropathy, unspecified
CPT/HCPCS: 36415; 36416; 71045; 80048; 80306; 80307; 81001; 82248; 83605; 83690; 83735; 84100; 84443; 84484; 85025; 93005; 96361; 96374; J1885; J2405; J3411; J3475; J7030

== ENCOUNTER 2024-05-31 16:49 | Emergency (ER) | payer BC, OTHER ==
[2024-05-31] MEDS ORDERED: Cyclobenzaprine 10 MG TAB ONE (17:44)
[2024-05-31] MEDS ORDERED: Lidocaine 4% Patch ONE (17:44)
== END 2024-06-01 00:03 | disposition home or self-care (01) ==
LOC: ERS 16:49
DX: S32.130A Nondisplaced Zone III fracture of sacrum, initial encounter for closed fracture (principal); I10 Essential (primary) hypertension; E11.40 Type 2 diabetes mellitus with diabetic neuropathy, unspecified; V43.62XA Car passenger injured in collision with other type car in traffic accident, initial encounter
CPT/HCPCS: 72125; 72128; 72131

== ENCOUNTER 2024-08-05 11:25 | Inpatient (IN) | payer BC, OTHER ==
[2024-08-05] MEDS ORDERED: Iopamidol-370 76% 500 ML MDV (1 ML CHARGE) ONE (11:35)
[2024-08-05 12:08] LABS: ALT (SGPT) 12 U/L (8-55); AST (SGOT) 36 U/L (5-34); Albumin 3.7 g/dL (3.5-5.0); Alkaline Phosphatase 75 U/L (40-110); Anion Gap 21 mmol/L (10-20); BUN (Urea Nitrogen) 10 mg/dL (9.8-20.1); Bilirubin, Total 0.8 mg/dL (0.2-1.2); Calc. Creatinine Clearance 0 mL/min (70-130); Calcium 8.8 mg/dL (7.8-10.44); Carbon Dioxide 14 mmol/L (22-29); Chloride 109 mmol/L (98-107); Estimated GFR 38; Globulin 3.4 g/dL (2.4-3.5); Glucose 66 mg/dL (70-105); Potassium 4.5 mmol/L (3.5-5.1); Protein, Total 7.1 g/dL (6.0-8.3); Sodium 139 mmol/L (136-145)
[2024-08-05 12:12] LABS: #Basophils 0.05 10x3/uL (0.0-0.2); %Basophils 0.8 % (0.0-1.0); %Eosinophils 4.2 % (0.0-10.0); %Lymphocytes 15.6 % (21.0-51.0); %Monocytes 7.7 % (0.0-10.0); %Neutrophils 71.4 % (42.0-75.0); Hematocrit 26.5 % (36.0-47.0); Hemoglobin 8.5 g/dL (12.0-16.0); Mean Corpuscular HGB CONC 32.1 g/dL (32.0-36.0); Mean Corpuscular Hemoglobin 36.8 pg (27.0-31.0); Mean Corpuscular Volume 114.7 fL (78.0-98.0); Mean Platelet Volume 9.2 fL (7.4-10.4); Platelet Count 283 10x3/uL (130-400); RBC Distribution Width 14.8 % (11.5-14.5); Red Blood Cell (RBC) Count 2.31 mill/uL (4.20-5.40)
[2024-08-05] MEDS ORDERED: Ondansetron PF 4 MG/2 ML Vial ONE (12:13)
[2024-08-05] MEDS ORDERED: Sodium Chloride 0.9% 100 ML ONE (12:43)
[2024-08-05] MEDS ORDERED: Morphine 4 MG/ML VIAL ONE (12:43)
[2024-08-05] MEDS ORDERED: Cefepime 2 GM VIAL ONE (12:43)
[2024-08-05 13:24] LABS: Bacteria/HPF None Seen HPF (None Seen); Bilirubin Negative (Negative); Blood, Urine Negative (Negative); CAUTI Indications for Culture Dysuria,urgency,freq; Clarity Clear (Clear); Glucose, Urine (Dipstick) Normal (Negative); Ketone, Urine 10 mg/dL (Negative); Leukocyte Negative Leu/uL (Negative); Nitrite Negative (Negative); Protein, Urine (Dipstick) Negative (Neg-Trace); RBC/HPF 0-3 HPF (0-3); Specific Gravity, Urine 1.007 (1.002-1.036); Squamous Epithelial 0-3 HPF (0-3); Urobilinogen Normal mg/dL (Less than 2); WBC/HPF None Seen HPF (0-3); pH, Urine 5.5 (5.0-9.0)
[2024-08-05 13:27] LABS: Urine Culture Reflex No No
[2024-08-05 13:45] LABS: PTT 28.8 sec (22.9-36.1); Prothrombin Time 13.6 sec (12.0-14.7)
[2024-08-05] MEDS ORDERED: Lorazepam 2 MG/ML VIAL ONE (14:56)
[2024-08-05 15:14] LABS: Lactic Acid 1.29 mmol/L (0.5-2.2)
[2024-08-05] MEDS ORDERED: Ondansetron ODT 4 MG TAB PO PRN ×2 (15:20→15:42)
[2024-08-05] MEDS ORDERED: Ondansetron PF 4 MG/2 ML Vial IVP PRN (15:20)
[2024-08-05] MEDS ORDERED: Lorazepam 2 MG/ML VIAL IM PRN (15:42)
[2024-08-05] MEDS ORDERED: Lorazepam 1 MG TAB PO PRN (15:42)
[2024-08-05] MEDS ORDERED: Electrolyte Replacement Protocol 1 EACH FS SCH (15:45)
[2024-08-05] MEDS ORDERED: Electrolyte Replacement Protocol FS PRN (16:00)
[2024-08-05] MEDS: Vancomycin (BATCH) 1.5 GM in Premix 1 BAG IVPB SCH (16:34)
[2024-08-05] MEDS: Sodium Chloride 0.9% 1,000 ML IV SCH (16:35)
[2024-08-05 16:44] VITALS: BMI 15.3
[2024-08-05] MEDS: Pantoprazole 40 MG VIAL IVP SCH (17:23)
[2024-08-05] MEDS: Thiamine HCl 200 MG/2 ML VIAL SLOW IVP SCH (17:23)
[2024-08-05] MEDS: Lorazepam 1 MG TAB PO SCH (17:23)
[2024-08-05] MEDS: Folic Acid 1 MG TAB PO SCH (17:24)
[2024-08-05] MEDS: Multivit, Therapeutic 1 TAB PO SCH (17:24)
[2024-08-05 17:42] LABS: #Basophils 0.05 10x3/uL (0.0-0.2); %Basophils 0.7 % (0.0-1.0); %Eosinophils 1.5 % (0.0-10.0); %Lymphocytes 17.7 % (21.0-51.0); %Monocytes 8.6 % (0.0-10.0); %Neutrophils 71.1 % (42.0-75.0); Hematocrit 28.1 % (36.0-47.0); Hemoglobin 9.4 g/dL (12.0-16.0); Mean Corpuscular HGB CONC 33.5 g/dL (32.0-36.0); Mean Corpuscular Hemoglobin 36.2 pg (27.0-31.0); Mean Corpuscular Volume 108.1 fL (78.0-98.0); Mean Platelet Volume 9.5 fL (7.4-10.4); Platelet Count 299 10x3/uL (130-400); RBC Distribution Width 14.6 % (11.5-14.5)
[2024-08-05 17:58] LABS: ALT (SGPT) 14 U/L (8-55); AST (SGOT) 33 U/L (5-34); Albumin 3.9 g/dL (3.5-5.0); Alkaline Phosphatase 84 U/L (40-110); Anion Gap 23 mmol/L (10-20); BUN (Urea Nitrogen) 11 mg/dL (9.8-20.1); Bilirubin, Direct 0.4 mg/dL (0.1-0.3); Calc. Creatinine Clearance 27 mL/min (70-130); Calcium 9.1 mg/dL (7.8-10.44); Carbon Dioxide 13 mmol/L (22-29); Chloride 106 mmol/L (98-107); Estimated GFR 39; Globulin 3.5 g/dL (2.4-3.5); Glucose 114 mg/dL (70-105); Magnesium 1.8 mg/dL (1.6-2.6); Phosphorus 3.9 mg/dL (2.3-4.7); Potassium 4.2 mmol/L (3.5-5.1); Protein, Total 7.4 g/dL (6.0-8.3); Sodium 138 mmol/L (136-145)
[2024-08-05] MEDS: FLU (Fluarix Triv) TS24-25(6MOS UP)/PF 45 MCG/0.5 ML Syringe IM ONE (18:12)
[2024-08-05] MEDS: Metoprolol Tartrate 25 MG TAB PO SCH (20:21)
[2024-08-05] MEDS: Gabapentin 100 MG CAP PO SCH (20:22)
[2024-08-05] MEDS: Acetaminophen 325 MG TAB PO PRN (20:22)
[2024-08-05] MEDS: cefTRIAXone\\ROCEPHIN 1 GM in Sodium Chloride 0.9% 100 ML IVPB SCH (20:23)
[2024-08-05] MEDS: Magnesium 2 GM/50 ML(in water) 2 GM in Premix 1 BAG IVPB SCH (20:47)
[2024-08-06 07:05] LABS: #Basophils Less than 0.03 10x3/uL (0.0-0.2); %Basophils 0.5 % (0.0-1.0); %Eosinophils 3.8 % (0.0-10.0); %Lymphocytes 20.3 % (21.0-51.0); %Monocytes 10.6 % (0.0-10.0); %Neutrophils 64.6 % (42.0-75.0); Hematocrit 23.8 % (36.0-47.0); Hemoglobin 7.9 g/dL (12.0-16.0); Mean Corpuscular HGB CONC 33.2 g/dL (32.0-36.0); Mean Corpuscular Hemoglobin 36.2 pg (27.0-31.0); Mean Corpuscular Volume 109.2 fL (78.0-98.0); Mean Platelet Volume 9.6 fL (7.4-10.4); Platelet Count 243 10x3/uL (130-400); RBC Distribution Width 14.5 % (11.5-14.5); Red Blood Cell (RBC) Count 2.18 mill/uL (4.20-5.40)
[2024-08-06 07:39] LABS: ALT (SGPT) 8 U/L (8-55); AST (SGOT) 23 U/L (5-34); Albumin 3.2 g/dL (3.5-5.0); Alkaline Phosphatase 69 U/L (40-110); Anion Gap 12 mmol/L (10-20); BUN (Urea Nitrogen) 8 mg/dL (9.8-20.1); Bilirubin, Total 0.6 mg/dL (0.2-1.2); Calc. Creatinine Clearance 33 mL/min (70-130); Calcium 8.7 mg/dL (7.8-10.44); Carbon Dioxide 22 mmol/L (22-29); Chloride 105 mmol/L (98-107); Estimated GFR 49; Globulin 2.8 g/dL (2.4-3.5); Glucose 116 mg/dL (70-105); Magnesium 2.7 mg/dL (1.6-2.6); Potassium 4.1 mmol/L (3.5-5.1); Sodium 135 mmol/L (136-145)
[2024-08-06] MEDS: Folic Acid 1 MG TAB PO SCH (08:55)
[2024-08-06] MEDS: Enoxaparin 30 MG (0.3 mL) SYRINGE SC SCH (08:55)
[2024-08-06] MEDS: Multivit, Therapeutic 1 TAB PO SCH (08:56)
[2024-08-06] MEDS: Amlodipine 5 MG TAB PO SCH (08:56)
[2024-08-06] MEDS: Pantoprazole 40 MG VIAL IVP SCH (08:56)
[2024-08-06 13:31] VITALS: BMI 15.3
[2024-08-06] MEDS ORDERED: Lorazepam 1 MG TAB PO PRN (15:42)
[2024-08-07 13:28] LABS: Anion Gap 17 mmol/L (10-20); BUN (Urea Nitrogen) 5 mg/dL (9.8-20.1); Calc. Creatinine Clearance 43 mL/min (70-130); Calcium 9.5 mg/dL (7.8-10.44); Carbon Dioxide 10 mmol/L (22-29); Chloride 111 mmol/L (98-107); Estimated GFR 67; Glucose 72 mg/dL (70-105); Potassium 4.9 mmol/L (3.5-5.1); Sodium 133 mmol/L (136-145)
[2024-08-07] MEDS: Lorazepam 0.5 MG TAB PO SCH (15:23)
[2024-08-07] MEDS ORDERED: Lorazepam 1 MG TAB PO PRN (15:42)
[2024-08-07 17:36] LABS: #Basophils 0.03 10x3/uL (0.0-0.2); %Basophils 0.7 % (0.0-1.0); %Eosinophils 5.2 % (0.0-10.0); %Lymphocytes 26.5 % (21.0-51.0); %Monocytes 9.9 % (0.0-10.0); %Neutrophils 57.3 % (42.0-75.0); Hemoglobin 8.3 g/dL (12.0-16.0); Mean Corpuscular HGB CONC 31.9 g/dL (32.0-36.0); Mean Corpuscular Hemoglobin 36.7 pg (27.0-31.0); Mean Platelet Volume 9.6 fL (7.4-10.4); Platelet Count 227 10x3/uL (130-400); RBC Distribution Width 14.5 % (11.5-14.5); Red Blood Cell (RBC) Count 2.26 mill/uL (4.20-5.40)
[2024-08-08 08:42] LABS: Anion Gap 11 mmol/L (10-20); BUN (Urea Nitrogen) 6 mg/dL (9.8-20.1); Calc. Creatinine Clearance 50 mL/min (70-130); Calcium 8.8 mg/dL (7.8-10.44); Carbon Dioxide 22 mmol/L (22-29); Chloride 108 mmol/L (98-107); Estimated GFR 80; Glucose 92 mg/dL (70-105); Potassium 3.7 mmol/L (3.5-5.1); Sodium 137 mmol/L (136-145)
[2024-08-08 08:57] LABS: #Basophils 0.03 10x3/uL (0.0-0.2); %Basophils 0.8 % (0.0-1.0); %Lymphocytes 28.9 % (21.0-51.0); %Neutrophils 54.5 % (42.0-75.0); Hematocrit 25.8 % (36.0-47.0); Hemoglobin 8.1 g/dL (12.0-16.0); Mean Corpuscular HGB CONC 31.4 g/dL (32.0-36.0); Mean Corpuscular Volume 114.7 fL (78.0-98.0); Mean Platelet Volume 10.2 fL (7.4-10.4); Platelet Count 226 10x3/uL (130-400); RBC Distribution Width 14.3 % (11.5-14.5); Red Blood Cell (RBC) Count 2.25 mill/uL (4.20-5.40)
[2024-08-08 09:34] LABS: Macrocytosis SLIGHT = 6-15 cells HPF (0-5); Platelet Adequacy Comment Platelets Normal; Polychromasia SLIGHT = 2-3 cells HPF (0-2)
[2024-08-08] MEDS: HYDROcodone/Acetaminophen 5/325 mg Tablet PO PRN (11:03)
[2024-08-08] MEDS ORDERED: Lorazepam 0.5 MG TAB PO PRN (15:42)
[2024-08-08] MEDS: Thiamine 100 MG TAB PO SCH (16:00)
[2024-08-09 06:09] LABS: #Basophils 0.04 10x3/uL (0.0-0.2); %Basophils 0.9 % (0.0-1.0); %Eosinophils 6.1 % (0.0-10.0); %Lymphocytes 34.5 % (21.0-51.0); %Monocytes 8.2 % (0.0-10.0); %Neutrophils 49.8 % (42.0-75.0); Hematocrit 25.1 % (36.0-47.0); Hemoglobin 7.8 g/dL (12.0-16.0); Mean Corpuscular HGB CONC 31.1 g/dL (32.0-36.0); Mean Corpuscular Hemoglobin 35.9 pg (27.0-31.0); Mean Corpuscular Volume 115.7 fL (78.0-98.0); Platelet Count 204 10x3/uL (130-400); RBC Distribution Width 14.6 % (11.5-14.5); Red Blood Cell (RBC) Count 2.17 mill/uL (4.20-5.40)
[2024-08-09 06:11] LABS: Anion Gap 12 mmol/L (10-20); BUN (Urea Nitrogen) 7 mg/dL (9.8-20.1); Calc. Creatinine Clearance 45 mL/min (70-130); Calcium 8.6 mg/dL (7.8-10.44); Carbon Dioxide 21 mmol/L (22-29); Chloride 109 mmol/L (98-107); Estimated GFR 71; Glucose 89 mg/dL (70-105); Potassium 3.8 mmol/L (3.5-5.1); Sodium 138 mmol/L (136-145)
[2024-08-09] MEDS ORDERED: Multivitamin W/ Minerals 1 TAB PO SCH (09:00)
[2024-08-09] MEDS ORDERED: Folic Acid 1 MG TAB PO SCH (09:00)
[2024-08-09] MEDS ORDERED: Thiamine 100 MG TAB PO SCH (09:00)
[2024-08-09] MEDS: Multivit, Therapeutic 1 TAB PO SCH (10:07)
[2024-08-09] MEDS: Thiamine 100 MG TAB PO SCH (15:53)
[2024-08-10 06:33] LABS: #Basophils 0.04 10x3/uL (0.0-0.2); %Basophils 0.9 % (0.0-1.0); %Lymphocytes 37.9 % (21.0-51.0); %Monocytes 10.3 % (0.0-10.0); %Neutrophils 43.4 % (42.0-75.0); Hematocrit 24.7 % (36.0-47.0); Hemoglobin 7.8 g/dL (12.0-16.0); Mean Corpuscular HGB CONC 31.6 g/dL (32.0-36.0); Mean Corpuscular Hemoglobin 36.3 pg (27.0-31.0); Mean Corpuscular Volume 114.9 fL (78.0-98.0); Mean Platelet Volume 10.8 fL (7.4-10.4); Platelet Count 191 10x3/uL (130-400); RBC Distribution Width 14.6 % (11.5-14.5); Red Blood Cell (RBC) Count 2.15 mill/uL (4.20-5.40)
[2024-08-10 06:34] LABS: Anion Gap 14 mmol/L (10-20); BUN (Urea Nitrogen) 6 mg/dL (9.8-20.1); Calc. Creatinine Clearance 49 mL/min (70-130); Calcium 8.8 mg/dL (7.8-10.44); Carbon Dioxide 21 mmol/L (22-29); Chloride 108 mmol/L (98-107); Estimated GFR 79; Glucose 76 mg/dL (70-105); Potassium 3.6 mmol/L (3.5-5.1); Sodium 139 mmol/L (136-145)
[2024-08-10] MEDS: Potassium Chloride 20 MEQ TAB PO SCH (10:22)
[2024-08-10] MEDS: Polyethylene Glycol 3350 17 GM Packet PO SCH (13:14)
[2024-08-11] MEDS: Polyethylene Glycol 3350 17 GM Packet PO SCH (08:58)
[2024-08-11] MEDS: cefTRIAXone\\ROCEPHIN 1 GM in Sodium Chloride 0.9% 100 ML IVPB SCH (08:58)
[2024-08-11] MEDS: Loratadine 10 MG TAB PO PRN (10:22)
[2024-08-11] MEDS ORDERED: cefTRIAXone Sodium 1 MG in Syringe 0 ML IVPB SCH (11:59)
[2024-08-11 18:08] VITALS: TEMP 98.7
[2024-08-11 18:34] VITALS: BP 133/86
== END 2024-08-11 16:27 | disposition home or self-care (01) | DRG 602 ==
LOC: ERS 11:25 → T4-B 14:08
PROVIDERS: ADMIT Internal Medicine; ATTEND Internal Medicine
DX: L03.114 Cellulitis of left upper limb (principal); E43 Unspecified severe protein-calorie malnutrition; F10.239 Alcohol dependence with withdrawal, unspecified; E87.20 Acidosis, unspecified; D53.9 Nutritional anemia, unspecified; Z79.899 Other long term (current) drug therapy; K29.70 Gastritis, unspecified, without bleeding; K29.80 Duodenitis without bleeding; I10 Essential (primary) hypertension
CPT/HCPCS: 36415; 36416; 74177; 80048; 80053; 80307; 81001; 82248; 83605; 83690; 83735; 84100; 85025; 85610; 85730; 87040; 93005; 96365; 96366; 96375; 97139; J0692; J0696; J1650; J2060; J2272; J2405; J2470; J3370; J3411; J3475; J7030; Q9967

== ENCOUNTER 2024-08-24 19:54 | Emergency (ER) | payer BC, OTHER | END 2024-08-24 21:06 | disposition left against medical advice (07) | LOC: ERS 19:54 | DX: Z53.21 Procedure and treatment not carried out due to patient leaving prior to being seen by health care provider (principal) ==

== ENCOUNTER 2024-08-25 17:21 | Emergency (ER) | payer BC, OTHER ==
[2024-08-25] MEDS ORDERED: Gabapentin 100 MG CAP ONE (19:33)
== END 2024-08-25 19:41 | disposition home or self-care (01) ==
LOC: ERS 17:21
DX: E11.40 Type 2 diabetes mellitus with diabetic neuropathy, unspecified (principal); I10 Essential (primary) hypertension; Z76.0 Encounter for issue of repeat prescription; Z79.899 Other long term (current) drug therapy
CPT/HCPCS: 36416; 99282

== ENCOUNTER 2024-09-17 02:41 | Emergency (ER) | payer BC, OTHER ==
[2024-09-17] MEDS ORDERED: Ketorolac Tromethamine 30 MG (1 mL) VIAL ONE (03:37)
[2024-09-17] MEDS ORDERED: Ondansetron ODT 4 MG TAB ONE (03:37)
== END 2024-09-17 04:07 | disposition home or self-care (01) ==
LOC: ERS 02:41
DX: M79.10 Myalgia, unspecified site (principal); F10.90 Alcohol use, unspecified, uncomplicated; R11.0 Nausea; E11.40 Type 2 diabetes mellitus with diabetic neuropathy, unspecified; I10 Essential (primary) hypertension; Z79.899 Other long term (current) drug therapy
CPT/HCPCS: 96372; 99283

== ENCOUNTER 2024-10-18 18:21 | Inpatient (IN) | payer BC, OTHER ==
[2024-10-18 19:08] LABS: #Basophils Less than 0.03 10x3/uL (0.0-0.2); #Eosinophils Less than 0.03 10x3/uL (0.0-0.7); %Basophils 0.1 % (0.0-1.0); %Lymphocytes 9.9 % (21.0-51.0); %Monocytes 8.1 % (0.0-10.0); %Neutrophils 81.6 % (42.0-75.0); Hematocrit 37.1 % (36.0-47.0); Hemoglobin 12.3 g/dL (12.0-16.0); Mean Corpuscular HGB CONC 33.2 g/dL (32.0-36.0); Mean Corpuscular Hemoglobin 36.3 pg (27.0-31.0); Mean Corpuscular Volume 109.4 fL (78.0-98.0); Platelet Count 170 10x3/uL (130-400); RBC Distribution Width 14.1 % (11.5-14.5); Red Blood Cell (RBC) Count 3.39 mill/uL (4.20-5.40)
[2024-10-18 19:26] LABS: ALT (SGPT) 13 U/L (8-55); AST (SGOT) 51 U/L (5-34); Albumin 3.8 g/dL (3.5-5.0); Alkaline Phosphatase 60 U/L (40-110); Anion Gap 23 mmol/L (10-20); BUN (Urea Nitrogen) 19 mg/dL (9.8-20.1); Bilirubin, Total 0.8 mg/dL (0.2-1.2); Calc. Creatinine Clearance 0 mL/min (70-130); Calcium 8.3 mg/dL (7.8-10.44); Carbon Dioxide 12 mmol/L (22-29); Chloride 111 mmol/L (98-107); Estimated GFR 57; Globulin 3.8 g/dL (2.4-3.5); Glucose 115 mg/dL (70-105); Lipase 10 U/L (8-78); Magnesium 1.2 mg/dL (1.6-2.6); Potassium 4.4 mmol/L (3.5-5.1); Protein, Total 7.6 g/dL (6.0-8.3); Sodium 142 mmol/L (136-145)
[2024-10-18] MEDS ORDERED: chlordiazePOXIDE HCl 25 MG CAP ONE (19:34)
[2024-10-18 20:23] LABS: Base Excess -11.4 mEq/L (-2.0 to +3.0); Calcium, Ionized (venous) 1.01 mmol/L (1.16-1.32); Chloride (VBG) 108 mmol/L (98-106); Hematocrit-VBG 39 % (36.0-47.0); Hemoglobin (Hb) 13.2 g/dL (11.7-16.0); Potassium (VBG) 4.04 mmol/L (3.70-5.30); Sodium 145 mmol/L (133-146)
[2024-10-18 20:24] LABS: Actual Bicarbonate (HCO3v) 14.5 mEq/L (22-28)
[2024-10-18] MEDS ORDERED: Magnesium 2 GM/50 ML BAG (IN WATER) ONE (20:53)
[2024-10-18] MEDS ORDERED: Lorazepam 1 MG TAB PO PRN (21:54)
[2024-10-18] MEDS ORDERED: Lorazepam 2 MG/ML VIAL IM PRN (21:54)
[2024-10-18] MEDS ORDERED: Ondansetron ODT 4 MG TAB PO PRN (21:54)
[2024-10-18] MEDS ORDERED: Calcium Carbonate 500 MG ChewTAB PO PRN (21:56)
[2024-10-18] MEDS ORDERED: Acetaminophen 325 MG TAB PO PRN ×2 (21:56→22:00)
[2024-10-18] MEDS ORDERED: Acetaminophen 650 MG Suppository PR PRN (21:56)
[2024-10-18] MEDS ORDERED: Ondansetron ODT 4 MG TAB SL PRN (22:00)
[2024-10-18] MEDS ORDERED: Ondansetron PF 4 MG/2 ML Vial IVP PRN (22:00)
[2024-10-18] MEDS ORDERED: Electrolyte Replacement Protocol FS SCH (22:00)
[2024-10-18] MEDS: Thiamine HCl 200 MG/2 ML VIAL SLOW IVP SCH (23:40)
[2024-10-18] MEDS: Lorazepam 1 MG TAB PO SCH (23:40)
[2024-10-18] MEDS: Dextrose 5%-Lactated Ringers 1,000 ML IV SCH (23:56)
[2024-10-19] MEDS: Magnesium 2 GM/50 ML(in water) 2 GM in Premix 1 BAG IVPB SCH (00:01)
[2024-10-19 00:39] VITALS: BMI 15.5
[2024-10-19 04:01] LABS: Magnesium 2.7 mg/dL (1.6-2.6)
[2024-10-19 04:11] LABS: ALT (SGPT) 9 U/L (8-55); AST (SGOT) 36 U/L (5-34); Albumin 3.5 g/dL (3.5-5.0); Alkaline Phosphatase 59 U/L (40-110); Anion Gap 19 mmol/L (10-20); BUN (Urea Nitrogen) 14 mg/dL (9.8-20.1); Bilirubin, Total 1.1 mg/dL (0.2-1.2); Calc. Creatinine Clearance 40 mL/min (70-130); Calcium 8.3 mg/dL (7.8-10.44); Carbon Dioxide 16 mmol/L (22-29); Chloride 107 mmol/L (98-107); Estimated GFR 60; Globulin 3.6 g/dL (2.4-3.5); Glucose 141 mg/dL (70-105); Protein, Total 7.1 g/dL (6.0-8.3); Sodium 138 mmol/L (136-145)
[2024-10-19 04:15] LABS: #Basophils Less than 0.03 10x3/uL (0.0-0.2); #Eosinophils Less than 0.03 10x3/uL (0.0-0.7); %Basophils 0.2 % (0.0-1.0); %Lymphocytes 9.6 % (21.0-51.0); %Monocytes 10.2 % (0.0-10.0); %Neutrophils 79.4 % (42.0-75.0); Hemoglobin 12.3 g/dL (12.0-16.0); Mean Corpuscular HGB CONC 34.2 g/dL (32.0-36.0); Mean Corpuscular Volume 105.3 fL (78.0-98.0); Platelet Count 136 10x3/uL (130-400); RBC Distribution Width 13.5 % (11.5-14.5); Red Blood Cell (RBC) Count 3.42 mill/uL (4.20-5.40)
[2024-10-19] MEDS: Folic Acid 1 MG TAB PO SCH (09:03)
[2024-10-19] MEDS: Multivit, Therapeutic 1 TAB PO SCH (09:03)
[2024-10-19] MEDS: Famotidine 20 MG TAB PO SCH (09:03)
[2024-10-19] MEDS: Amlodipine 5 MG TAB PO SCH (09:03)
[2024-10-19] MEDS: Metoprolol Tartrate 25 MG TAB PO SCH (09:04)
[2024-10-19] MEDS: Famotidine/PF 20 mg/2ml Vial SLOW IVP SCH (09:32)
[2024-10-19] MEDS ORDERED: hydrALAZINE 20 MG/ML VIAL SLOW IVP PRN (09:40)
[2024-10-19 10:50] VITALS: BMI 15.5
[2024-10-19] MEDS: Gabapentin 100 MG CAP PO SCH (14:46)
[2024-10-19] MEDS ORDERED: Lorazepam 1 MG TAB PO PRN (21:54)
[2024-10-20 04:41] LABS: #Basophils Less than 0.03 10x3/uL (0.0-0.2); %Basophils 0.2 % (0.0-1.0); %Eosinophils 0.6 % (0.0-10.0); %Lymphocytes 24.4 % (21.0-51.0); %Monocytes 6.2 % (0.0-10.0); %Neutrophils 68.3 % (42.0-75.0); Hematocrit 42.3 % (36.0-47.0); Hemoglobin 14.5 g/dL (12.0-16.0); Mean Corpuscular HGB CONC 34.3 g/dL (32.0-36.0); Mean Corpuscular Hemoglobin 35.7 pg (27.0-31.0); Mean Corpuscular Volume 104.2 fL (78.0-98.0); Platelet Count 123 10x3/uL (130-400); RBC Distribution Width 13.4 % (11.5-14.5); Red Blood Cell (RBC) Count 4.06 mill/uL (4.20-5.40)
[2024-10-20 04:44] LABS: Calc. Creatinine Clearance 35 mL/min (70-130); Estimated GFR 52
[2024-10-20 04:46] LABS: ALT (SGPT) 9 U/L (8-55); AST (SGOT) 25 U/L (5-34); Albumin 3.8 g/dL (3.5-5.0); Alkaline Phosphatase 69 U/L (40-110); Anion Gap 16 mmol/L (10-20); BUN (Urea Nitrogen) 9 mg/dL (9.8-20.1); Bilirubin, Total 1.5 mg/dL (0.2-1.2); Calcium 9.4 mg/dL (7.8-10.44); Carbon Dioxide 23 mmol/L (22-29); Chloride 100 mmol/L (98-107); Globulin 4.2 g/dL (2.4-3.5); Glucose 112 mg/dL (70-105); Potassium 3.1 mmol/L (3.5-5.1); Sodium 136 mmol/L (136-145)
[2024-10-20] MEDS: Dextrose 5%-Lactated Ringers 1,000 ML IV SCH (08:19)
[2024-10-20] MEDS: Famotidine/PF 20 mg/2ml Vial SLOW IVP SCH (09:43)
[2024-10-20] MEDS: Potassium Chloride 20 MEQ TAB PO SCH (09:44)
[2024-10-20] MEDS: Famotidine 20 MG TAB PO SCH (09:44)
[2024-10-20] MEDS: Potassium Chloride 10 MEQ TAB PO SCH (12:06)
[2024-10-20] MEDS: Lorazepam 0.5 MG TAB PO SCH (21:17)
[2024-10-20] MEDS ORDERED: Lorazepam 1 MG TAB PO PRN (21:54)
[2024-10-21 04:29] LABS: ALT (SGPT) 7 U/L (8-55); AST (SGOT) 21 U/L (5-34); Albumin 3.1 g/dL (3.5-5.0); Alkaline Phosphatase 58 U/L (40-110); Anion Gap 11 mmol/L (10-20); BUN (Urea Nitrogen) 10 mg/dL (9.8-20.1); Bilirubin, Total 0.9 mg/dL (0.2-1.2); Calc. Creatinine Clearance 35 mL/min (70-130); Calcium 8.7 mg/dL (7.8-10.44); Carbon Dioxide 21 mmol/L (22-29); Chloride 106 mmol/L (98-107); Estimated GFR 51; Globulin 3.2 g/dL (2.4-3.5); Glucose 109 mg/dL (70-105); Potassium 3.2 mmol/L (3.5-5.1); Protein, Total 6.3 g/dL (6.0-8.3); Sodium 135 mmol/L (136-145)
[2024-10-21 05:48] LABS: #Basophils Less than 0.03 10x3/uL (0.0-0.2); %Basophils 0.3 % (0.0-1.0); %Lymphocytes 20.7 % (21.0-51.0); %Monocytes 8.6 % (0.0-10.0); %Neutrophils 68.3 % (42.0-75.0); Hematocrit 32.5 % (36.0-47.0); Hemoglobin 11.3 g/dL (12.0-16.0); Mean Corpuscular HGB CONC 34.8 g/dL (32.0-36.0); Mean Corpuscular Volume 103.5 fL (78.0-98.0); Mean Platelet Volume 10.7 fL (7.4-10.4); Platelet Count 96 10x3/uL (130-400); RBC Distribution Width 13.5 % (11.5-14.5); Red Blood Cell (RBC) Count 3.14 mill/uL (4.20-5.40)
[2024-10-21] MEDS: Potassium Chloride 20 MEQ TAB PO SCH (08:07)
[2024-10-21] MEDS: Potassium Chloride 10 MEQ TAB PO SCH (08:10)
[2024-10-21 13:15] VITALS: BP 134/95; TEMP 98
[2024-10-21] MEDS ORDERED: Lorazepam 0.5 MG TAB PO PRN (21:54)
[2024-10-21] MEDS ORDERED: Thiamine 100 MG TAB PO SCH (22:00)
== END 2024-10-21 14:20 | disposition home or self-care (01) | DRG 897 ==
LOC: ERS 18:21 → PCU 21:49
PROVIDERS: ADMIT Student in an Organized Health Care Education/Training Program; ATTEND Internal Medicine
PROC: HZ2ZZZZ Detoxification Services for Substance Abuse Treatment (ICD-10-PCS; principal; 2024-10-18)
DX: F10.129 Alcohol abuse with intoxication, unspecified (principal); E87.29 Other acidosis; Z68.1 Body mass index [BMI] 19.9 or less, adult; I10 Essential (primary) hypertension; E86.0 Dehydration; R63.6 Underweight; E11.40 Type 2 diabetes mellitus with diabetic neuropathy, unspecified; G89.29 Other chronic pain
CPT/HCPCS: 36415; 36416; 71045; 74018; 80053; 82805; 83605; 83690; 83735; 84100; 85025; 93005; 96360; 96361; 96365; J3411; J3475; J3490; Q0162

== ENCOUNTER 2025-04-12 20:49 | Inpatient (IN) | payer OTHER, BC ==
[2025-04-12] MEDS ORDERED: Dextrose 50% Abboject 50 ML SYRINGE SLOW IVP PRN (21:58)
[2025-04-12] MEDS ORDERED: Glucagon 1 MG/ML KIT IM PRN (21:58)
[2025-04-12 23:01] VITALS: BMI 15.0
[2025-04-12] MEDS ORDERED: cefTRIAXone Sodium 2 MG in Syringe 0 ML IVPB SCH (23:15)
[2025-04-12] MEDS ORDERED: Vancomycin Dose by Levels Sliding Scale (Wt <71) FS SCH (23:30)
[2025-04-12] MEDS: Gabapentin 100 MG CAP PO SCH (23:42)
[2025-04-12] MEDS: cefTRIAXone\\ROCEPHIN 2 GM in Sodium Chloride 0.9% 100 ML IVPB SCH (23:42)
[2025-04-13 00:04] LABS: ALT (SGPT) 8 U/L (Less than 34); AST (SGOT) 21 U/L (11-34); Albumin 2.4 g/dL (3.1-4.5); Alkaline Phosphatase 34 U/L (40-110); Anion Gap 18 mmol/L (10-20); BUN (Urea Nitrogen) 18 mg/dL (9.8-20.1); Bilirubin, Total 2.0 mg/dL (0.3-1.2); Calc. Creatinine Clearance 11 mL/min (70-130); Calcium 7.3 mg/dL (7.8-10.44); Carbon Dioxide 16 mmol/L (22-29); Chloride 106 mmol/L (98-107); Globulin 3.1 g/dL (2.4-3.5); Glucose 76 mg/dL (70-105); Potassium 3.7 mmol/L (3.5-5.1); Sodium 136 mmol/L (136-145)
[2025-04-13 00:05] LABS: Hematocrit 30.0 % (36.0-47.0); Hemoglobin 9.6 g/dL (12.0-16.0); Mean Corpuscular Hemoglobin 36.1 pg (27.0-31.0); Mean Corpuscular Volume 112.8 fL (78.0-98.0); Platelet Count 115 10x3/uL (130-400); Red Blood Cell (RBC) Count 2.66 mill/uL (4.20-5.40); White Blood Cell (WBC) Count 10.16 10x3/uL (4.8-10.8)
[2025-04-13 00:09] LABS: Troponin I 0.052 ng/mL (< 0.028)
[2025-04-13] MEDS: Vancomycin 1 GM Premix Bag IVPB SCH (00:47)
[2025-04-13 02:09] LABS: #Basophils 0.04 10x3/uL (0.0-0.2); #Eosinophils Less than 0.03 10x3/uL (0.0-0.7); #Monocytes 0.84 10x3/uL (0.11-0.59); #Neutrophils 8.03 10x3/uL (1.40-6.50); %Basophils 0.4 % (0.0-1.0); %Eosinophils 0.0 % (0.0-10.0); %Lymphocytes 9.0 % (21.0-51.0); %Monocytes 8.5 % (0.0-10.0); %Neutrophils 81.6 % (42.0-75.0)
[2025-04-13 02:34] LABS: Influenza A by NAA Not Detected (NotDetected); Influenza B by NAA Not Detected (NotDetected); RSV by NAA Not Detected (NotDetected); SARS-CoV-2 NAA Rapid Test Not Detected (NotDetected)
[2025-04-13 04:42] LABS: Hematocrit 30.0 % (36.0-47.0); Hemoglobin 9.7 g/dL (12.0-16.0); Mean Corpuscular Hemoglobin 36.5 pg (27.0-31.0); Mean Corpuscular Volume 112.8 fL (78.0-98.0); Platelet Count 117 10x3/uL (130-400); Red Blood Cell (RBC) Count 2.66 mill/uL (4.20-5.40); White Blood Cell (WBC) Count 9.77 10x3/uL (4.8-10.8)
[2025-04-13 04:58] LABS: Anion Gap 14 mmol/L (10-20); BUN (Urea Nitrogen) 20 mg/dL (9.8-20.1); Calc. Creatinine Clearance 13 mL/min (70-130); Calcium 7.2 mg/dL (7.8-10.44); Carbon Dioxide 18 mmol/L (22-29); Chloride 107 mmol/L (98-107); Glucose 89 mg/dL (70-105); Potassium 3.5 mmol/L (3.5-5.1); Sodium 135 mmol/L (136-145)
[2025-04-13 06:00] LABS: Anisocytosis SLIGHT = 6-15 cells HPF (0-5); Burr Cells SLIGHT = 2-5 cells HPF (0-1); Macrocytosis SLIGHT = 6-15 cells HPF (0-5); Platelet Adequacy Comment Platelets Decreased; Polychromasia SLIGHT = 2-3 cells HPF (0-2); Smudge Cells 9.8 %
[2025-04-13] MEDS ORDERED: Gabapentin 100 MG CAP PO SCH (09:00)
[2025-04-13 09:08] LABS: Legionella Urinary Ag Negative (Negative); Strep pneumo Urine Ag NEGATIVE (NEGATIVE)
[2025-04-13] MEDS: Folic Acid 1 MG TAB PO SCH (09:46)
[2025-04-13] MEDS: Multivit, Chewable SF 1 TAB PO SCH (09:46)
[2025-04-13] MEDS: Gabapentin 100 MG CAP PO SCH (09:46)
[2025-04-13] MEDS: Heparin 5,000 UNITS/ML VIAL SC SCH (10:45)
[2025-04-13] MEDS: Acetaminophen 325 MG TAB PO PRN (10:45)
[2025-04-13 11:22] VITALS: BMI 15.0
[2025-04-13] MEDS: Sodium Bicarbonate Tab 325 MG TAB PO SCH (20:49)
[2025-04-13] MEDS: HYDROcodone/Acetaminophen 5/325 mg Tablet PO PRN (21:04)
[2025-04-13 23:31] LABS: Vancomycin, Trough 13.9 ug/mL
[2025-04-14 04:54] LABS: ALT (SGPT) 9 U/L (Less than 34); AST (SGOT) 33 U/L (11-34); Albumin 2.1 g/dL (3.1-4.5); Alkaline Phosphatase 51 U/L (40-110); Anion Gap 11 mmol/L (10-20); BUN (Urea Nitrogen) 23 mg/dL (9.8-20.1); Bilirubin, Total 0.8 mg/dL (0.3-1.2); Calc. Creatinine Clearance 19 mL/min (70-130); Calcium 7.1 mg/dL (7.8-10.44); Carbon Dioxide 20 mmol/L (22-29); Chloride 109 mmol/L (98-107); Globulin 3.2 g/dL (2.4-3.5); Glucose 88 mg/dL (70-105); Magnesium 1.2 mg/dL (1.6-2.6); Potassium 3.2 mmol/L (3.5-5.1); Sodium 137 mmol/L (136-145)
[2025-04-14 04:56] LABS: Anisocytosis SLIGHT = 6-15 cells HPF (0-5); Macrocytosis SLIGHT = 6-15 cells HPF (0-5); Platelet Adequacy Comment Platelets Decreased; Poikilocytosis SLIGHT = 6-15 cells HPF (0-5); Polychromasia SLIGHT = 2-3 cells HPF (0-2)
[2025-04-14 04:59] LABS: Hematocrit 31.3 % (36.0-47.0); Hemoglobin 10.3 g/dL (12.0-16.0); Mean Corpuscular Hemoglobin 35.6 pg (27.0-31.0); Mean Corpuscular Volume 108.3 fL (78.0-98.0); Platelet Count 87 10x3/uL (130-400); Red Blood Cell (RBC) Count 2.89 mill/uL (4.20-5.40); White Blood Cell (WBC) Count 7.80 10x3/uL (4.8-10.8)
[2025-04-14] MEDS: Magnesium 2 GM/50 ML(in water) 2 GM in Premix 1 BAG IVPB SCH ×2 (09:24→11:57)
[2025-04-14] MEDS: Cyanocobalamin (Vitamin B-12) 1,000 MCG TAB PO SCH (11:06)
[2025-04-15 04:09] LABS: #Basophils 0.03 10x3/uL (0.0-0.2); #Eosinophils 0.09 10x3/uL (0.0-0.7); #Monocytes 0.84 10x3/uL (0.11-0.59); #Neutrophils 4.99 10x3/uL (1.40-6.50); %Basophils 0.4 % (0.0-1.0); %Eosinophils 1.3 % (0.0-10.0); %Lymphocytes 12.6 % (21.0-51.0); %Monocytes 12.2 % (0.0-10.0); %Neutrophils 72.3 % (42.0-75.0); Hematocrit 30.6 % (36.0-47.0); Hemoglobin 10.2 g/dL (12.0-16.0); Mean Corpuscular Hemoglobin 35.8 pg (27.0-31.0); Mean Corpuscular Volume 107.4 fL (78.0-98.0); Platelet Count 107 10x3/uL (130-400); Red Blood Cell (RBC) Count 2.85 mill/uL (4.20-5.40); White Blood Cell (WBC) Count 6.90 10x3/uL (4.8-10.8)
[2025-04-15 04:19] LABS: Anion Gap 11 mmol/L (10-20); BUN (Urea Nitrogen) 13 mg/dL (9.8-20.1); Calc. Creatinine Clearance 32 mL/min (70-130); Calcium 7.7 mg/dL (7.8-10.44); Carbon Dioxide 22 mmol/L (22-29); Chloride 106 mmol/L (98-107); Glucose 96 mg/dL (70-105); Magnesium 2.2 mg/dL (1.6-2.6); Potassium 3.4 mmol/L (3.5-5.1); Sodium 136 mmol/L (136-145)
[2025-04-15] MEDS: Cyanocobalamin (Vitamin B-12) 1,000 MCG TAB PO SCH (13:05)
[2025-04-16 04:33] LABS: INR-International Normal Ratio 1.0; Prothrombin Time 13.2 sec (12.0-14.7)
[2025-04-16 04:39] LABS: ALT (SGPT) 19 U/L (Less than 34); AST (SGOT) 50 U/L (11-34); Albumin 2.2 g/dL (3.1-4.5); Alkaline Phosphatase 91 U/L (40-110); Anion Gap 16 mmol/L (10-20); BUN (Urea Nitrogen) 11 mg/dL (9.8-20.1); Bilirubin, Total 0.6 mg/dL (0.3-1.2); Calc. Creatinine Clearance 40 mL/min (70-130); Calcium 8.2 mg/dL (7.8-10.44); Carbon Dioxide 22 mmol/L (22-29); Chloride 102 mmol/L (98-107); Globulin 3.6 g/dL (2.4-3.5); Glucose 94 mg/dL (70-105); Magnesium 1.5 mg/dL (1.6-2.6); Potassium 4.1 mmol/L (3.5-5.1); Sodium 136 mmol/L (136-145)
[2025-04-16] MEDS: Thiamine HCl 500 MG, Admixture Fee 1 EACH in Sodium Chloride 0.9% 100 ML IVPB SCH (17:22)
[2025-04-17 05:22] LABS: ALT (SGPT) 17 U/L (Less than 34); AST (SGOT) 42 U/L (11-34); Albumin 2.0 g/dL (3.1-4.5); Alkaline Phosphatase 78 U/L (40-110); Anion Gap 15 mmol/L (10-20); BUN (Urea Nitrogen) 10 mg/dL (9.8-20.1); Bilirubin, Total 0.4 mg/dL (0.3-1.2); Calc. Creatinine Clearance 46 mL/min (70-130); Calcium 8.2 mg/dL (7.8-10.44); Carbon Dioxide 23 mmol/L (22-29); Chloride 101 mmol/L (98-107); Globulin 3.4 g/dL (2.4-3.5); Glucose 82 mg/dL (70-105); Magnesium 1.3 mg/dL (1.6-2.6); Potassium 3.4 mmol/L (3.5-5.1); Sodium 136 mmol/L (136-145)
[2025-04-17] MEDS: Heparin 5,000 UNITS/ML VIAL SC SCH (20:10)
[2025-04-17] MEDS: HYDROcodone/Acetaminophen 5/325 mg Tablet PO SCH (21:35)
[2025-04-17] MEDS: Metoprolol Tartrate 5 MG (5 mL) VIAL IVP SCH (21:40)
[2025-04-18] MEDS ORDERED: Iopamidol 370 76% 100 ML VIAL ONE (12:55)
[2025-04-18] MEDS: Vancomycin 1 GM in Premix 1 BAG IVPB SCH (22:41)
[2025-04-18] MEDS: Azithromycin 250 MG TAB PO SCH (22:45)
[2025-04-19 05:31] LABS: Vancomycin, Random 23.4 ug/mL (See Comment)
[2025-04-19 05:32] LABS: #Basophils Less than 0.03 10x3/uL (0.0-0.2); #Eosinophils 0.13 10x3/uL (0.0-0.7); #Monocytes 0.77 10x3/uL (0.11-0.59); #Neutrophils 10.26 10x3/uL (1.40-6.50); %Basophils 0.1 % (0.0-1.0); %Eosinophils 1.1 % (0.0-10.0); %Lymphocytes 8.1 % (21.0-51.0); %Monocytes 6.3 % (0.0-10.0); %Neutrophils 83.6 % (42.0-75.0); Hematocrit 26.0 % (36.0-47.0); Hemoglobin 8.9 g/dL (12.0-16.0); Mean Corpuscular Hemoglobin 35.5 pg (27.0-31.0); Mean Corpuscular Volume 103.6 fL (78.0-98.0); Platelet Count 336 10x3/uL (130-400); Red Blood Cell (RBC) Count 2.51 mill/uL (4.20-5.40); White Blood Cell (WBC) Count 12.26 10x3/uL (4.8-10.8)
[2025-04-19 05:33] LABS: Anion Gap 13 mmol/L (10-20); BUN (Urea Nitrogen) 9 mg/dL (9.8-20.1); Calc. Creatinine Clearance 43 mL/min (70-130); Calcium 7.4 mg/dL (7.8-10.44); Carbon Dioxide 26 mmol/L (22-29); Chloride 101 mmol/L (98-107); Glucose 81 mg/dL (70-105); Potassium 3.4 mmol/L (3.5-5.1); Sodium 137 mmol/L (136-145)
[2025-04-19] MEDS: Vancomycin HCl 500 MG in NaCl 0.9% 100 ML IV SCH (07:58)
[2025-04-19 10:27] LABS: Magnesium 1.1 mg/dL (1.6-2.6)
[2025-04-19] MEDS ORDERED: Magnesium 2 GM/50 ML(in water) 4 GM in Premix 1 BAG IVPB SCH (11:00)
[2025-04-19] MEDS: Magnesium Sulfate In Water 4 GM in Premix 1 BAG IVPB SCH (11:46)
[2025-04-20] MEDS: Vancomycin 1 GM in Premix 1 BAG IVPB SCH (05:03)
[2025-04-20 05:09] LABS: #Basophils 0.04 10x3/uL (0.0-0.2); #Eosinophils 0.21 10x3/uL (0.0-0.7); #Monocytes 0.75 10x3/uL (0.11-0.59); #Neutrophils 11.93 10x3/uL (1.40-6.50); %Basophils 0.3 % (0.0-1.0); %Eosinophils 1.5 % (0.0-10.0); %Lymphocytes 8.0 % (21.0-51.0); %Monocytes 5.3 % (0.0-10.0); %Neutrophils 84.2 % (42.0-75.0); Hematocrit 29.7 % (36.0-47.0); Hemoglobin 9.8 g/dL (12.0-16.0); Mean Corpuscular Hemoglobin 35.4 pg (27.0-31.0); Mean Corpuscular Volume 107.2 fL (78.0-98.0); Platelet Count 338 10x3/uL (130-400); Red Blood Cell (RBC) Count 2.77 mill/uL (4.20-5.40); White Blood Cell (WBC) Count 14.17 10x3/uL (4.8-10.8)
[2025-04-20 05:28] LABS: Vancomycin, Random 14.4 ug/mL (See Comment)
[2025-04-20 05:38] LABS: Anion Gap 15 mmol/L (10-20); BUN (Urea Nitrogen) 7 mg/dL (9.8-20.1); Calc. Creatinine Clearance 45 mL/min (70-130); Calcium 7.9 mg/dL (7.8-10.44); Carbon Dioxide 19 mmol/L (22-29); Chloride 106 mmol/L (98-107); Glucose 71 mg/dL (70-105); Potassium 4.7 mmol/L (3.5-5.1); Sodium 135 mmol/L (136-145)
[2025-04-20 05:43] LABS: HIV (1/2) Antibody/Antigen NONREACTIVE (NonReactive); HIV 1/2 INDEX 0.05 S/CO (<1.00)
[2025-04-20 11:33] LABS: Magnesium 1.7 mg/dL (1.6-2.6)
[2025-04-21 05:59] LABS: #Basophils 0.04 10x3/uL (0.0-0.2); #Eosinophils 0.22 10x3/uL (0.0-0.7); #Monocytes 1.15 10x3/uL (0.11-0.59); #Neutrophils 12.47 10x3/uL (1.40-6.50); %Basophils 0.3 % (0.0-1.0); %Eosinophils 1.4 % (0.0-10.0); %Lymphocytes 8.9 % (21.0-51.0); %Monocytes 7.5 % (0.0-10.0); %Neutrophils 81.1 % (42.0-75.0); Hematocrit 24.5 % (36.0-47.0); Hemoglobin 8.3 g/dL (12.0-16.0); Mean Corpuscular Hemoglobin 35.6 pg (27.0-31.0); Mean Corpuscular Volume 105.2 fL (78.0-98.0); Platelet Count 401 10x3/uL (130-400); Red Blood Cell (RBC) Count 2.33 mill/uL (4.20-5.40); White Blood Cell (WBC) Count 15.38 10x3/uL (4.8-10.8)
[2025-04-21 06:17] LABS: Anion Gap 13 mmol/L (10-20); BUN (Urea Nitrogen) 5 mg/dL (9.8-20.1); Calc. Creatinine Clearance 42 mL/min (70-130); Calcium 7.7 mg/dL (7.8-10.44); Carbon Dioxide 25 mmol/L (22-29); Chloride 105 mmol/L (98-107); Glucose 78 mg/dL (70-105); Potassium 3.4 mmol/L (3.5-5.1); Sodium 140 mmol/L (136-145)
[2025-04-22 05:38] LABS: #Basophils 0.05 10x3/uL (0.0-0.2); #Eosinophils 0.18 10x3/uL (0.0-0.7); #Monocytes 0.85 10x3/uL (0.11-0.59); #Neutrophils 10.14 10x3/uL (1.40-6.50); %Basophils 0.4 % (0.0-1.0); %Eosinophils 1.4 % (0.0-10.0); %Lymphocytes 8.8 % (21.0-51.0); %Monocytes 6.8 % (0.0-10.0); %Neutrophils 81.6 % (42.0-75.0); Hematocrit 27.5 % (36.0-47.0); Hemoglobin 9.1 g/dL (12.0-16.0); Mean Corpuscular Hemoglobin 34.7 pg (27.0-31.0); Mean Corpuscular Volume 105.0 fL (78.0-98.0); Platelet Count 424 10x3/uL (130-400); Red Blood Cell (RBC) Count 2.62 mill/uL (4.20-5.40); White Blood Cell (WBC) Count 12.43 10x3/uL (4.8-10.8)
[2025-04-22 05:57] LABS: Anion Gap 14 mmol/L (10-20); BUN (Urea Nitrogen) 5 mg/dL (9.8-20.1); Calc. Creatinine Clearance 40 mL/min (70-130); Calcium 7.8 mg/dL (7.8-10.44); Carbon Dioxide 24 mmol/L (22-29); Chloride 104 mmol/L (98-107); Glucose 79 mg/dL (70-105); Magnesium 1.2 mg/dL (1.6-2.6); Potassium 3.5 mmol/L (3.5-5.1); Sodium 138 mmol/L (136-145)
[2025-04-22] MEDS: Melatonin 3 MG TAB PO PRN (21:19)
[2025-04-23 05:34] LABS: #Basophils 0.05 10x3/uL (0.0-0.2); #Eosinophils 0.08 10x3/uL (0.0-0.7); #Monocytes 0.76 10x3/uL (0.11-0.59); #Neutrophils 9.47 10x3/uL (1.40-6.50); %Basophils 0.4 % (0.0-1.0); %Eosinophils 0.7 % (0.0-10.0); %Lymphocytes 6.6 % (21.0-51.0); %Monocytes 6.8 % (0.0-10.0); %Neutrophils 84.6 % (42.0-75.0); Hematocrit 30.2 % (36.0-47.0); Hemoglobin 10.3 g/dL (12.0-16.0); Mean Corpuscular Hemoglobin 35.0 pg (27.0-31.0); Mean Corpuscular Volume 102.7 fL (78.0-98.0); Platelet Count 450 10x3/uL (130-400); Red Blood Cell (RBC) Count 2.94 mill/uL (4.20-5.40); White Blood Cell (WBC) Count 11.20 10x3/uL (4.8-10.8)
[2025-04-23 06:07] LABS: Anion Gap 15 mmol/L (10-20); BUN (Urea Nitrogen) 4 mg/dL (9.8-20.1); Calc. Creatinine Clearance 43 mL/min (70-130); Calcium 7.7 mg/dL (7.8-10.44); Carbon Dioxide 22 mmol/L (22-29); Chloride 103 mmol/L (98-107); Glucose 72 mg/dL (70-105); Potassium 3.4 mmol/L (3.5-5.1); Sodium 137 mmol/L (136-145)
[2025-04-23 10:37] LABS: A. flavus Negative (Neg:<1:1); A. fumigatus Negative (Neg:<1:1); A. niger Negative (Neg:<1:1); Blastomyces AB Negative (Neg:<1:1)
[2025-04-24 05:29] LABS: #Basophils 0.04 10x3/uL (0.0-0.2); #Eosinophils 0.06 10x3/uL (0.0-0.7); #Monocytes 0.80 10x3/uL (0.11-0.59); #Neutrophils 8.78 10x3/uL (1.40-6.50); %Basophils 0.4 % (0.0-1.0); %Eosinophils 0.6 % (0.0-10.0); %Lymphocytes 10.1 % (21.0-51.0); %Monocytes 7.4 % (0.0-10.0); %Neutrophils 80.8 % (42.0-75.0); Hematocrit 27.0 % (36.0-47.0); Hemoglobin 9.1 g/dL (12.0-16.0); Mean Corpuscular Hemoglobin 35.3 pg (27.0-31.0); Mean Corpuscular Volume 104.7 fL (78.0-98.0); Platelet Count 429 10x3/uL (130-400); Red Blood Cell (RBC) Count 2.58 mill/uL (4.20-5.40); White Blood Cell (WBC) Count 10.86 10x3/uL (4.8-10.8)
[2025-04-24 05:56] LABS: Anion Gap 14 mmol/L (10-20); BUN (Urea Nitrogen) 4 mg/dL (9.8-20.1); Calc. Creatinine Clearance 45 mL/min (70-130); Calcium 7.1 mg/dL (7.8-10.44); Carbon Dioxide 22 mmol/L (22-29); Chloride 102 mmol/L (98-107); Glucose 81 mg/dL (70-105); Magnesium 0.9 mg/dL (1.6-2.6); Potassium 3.2 mmol/L (3.5-5.1); Sodium 135 mmol/L (136-145)
[2025-04-24] MEDS: Magnesium 2 GM/50 ML(in water) 2 GM in Premix 1 BAG IVPB SCH ×2 (06:47→09:11)
[2025-04-24] MEDS: Potassium Bicarbonate/Cit Ac 20 MEQ TAB PO SCH (07:22)
[2025-04-24 15:06] LABS: Magnesium 1.8 mg/dL (1.6-2.6)
[2025-04-24 16:14] LABS: Myeloperoxidase AutoAbs <0.2 units (0.0-0.9); Proteinase-3 AutoAbs Less than 0.2 units (0.0-0.9)
[2025-04-25 06:05] LABS: #Basophils 0.06 10x3/uL (0.0-0.2); #Eosinophils 0.12 10x3/uL (0.0-0.7); #Monocytes 1.43 10x3/uL (0.11-0.59); #Neutrophils 7.78 10x3/uL (1.40-6.50); %Basophils 0.5 % (0.0-1.0); %Eosinophils 1.1 % (0.0-10.0); %Lymphocytes 16.9 % (21.0-51.0); %Monocytes 12.5 % (0.0-10.0); %Neutrophils 68.3 % (42.0-75.0); Hematocrit 26.6 % (36.0-47.0); Hemoglobin 8.9 g/dL (12.0-16.0); Mean Corpuscular Hemoglobin 34.8 pg (27.0-31.0); Mean Corpuscular Volume 103.9 fL (78.0-98.0); Platelet Count 484 10x3/uL (130-400); Red Blood Cell (RBC) Count 2.56 mill/uL (4.20-5.40); White Blood Cell (WBC) Count 11.40 10x3/uL (4.8-10.8)
[2025-04-25 06:31] LABS: Anion Gap 14 mmol/L (10-20); BUN (Urea Nitrogen) 4 mg/dL (9.8-20.1); Calc. Creatinine Clearance 41 mL/min (70-130); Calcium 7.1 mg/dL (7.8-10.44); Carbon Dioxide 24 mmol/L (22-29); Chloride 105 mmol/L (98-107); Glucose 83 mg/dL (70-105); Magnesium 1.5 mg/dL (1.6-2.6); Potassium 4.0 mmol/L (3.5-5.1); Sodium 139 mmol/L (136-145)
[2025-04-25 13:03] LABS: RBC Count-Automated (BF) 108 /cu.mm; WBC/Nucleated-Auto (BF) 197 /cu.mm
[2025-04-25 13:09] LABS: Fluid, pH - Pleural Fld Greater than 7.500 (7.60 - 7.66)
[2025-04-25 13:58] LABS: BF Segmented Neutrophils 58 %; Cell Count Non Hematic 26 %
[2025-04-25 14:35] LABS: Pleural Fluid, Amylase Less than 30 U/L (Not Available); Pleural Fluid, Glucose 91 mg/dL; Pleural Fluid, LDH 73 U/L (Not Available); Pleural Fluid, Protein 1.6 g/dL
[2025-04-25] MEDS: hydrALAZINE 20 MG/ML VIAL SLOW IVP PRN (18:11)
[2025-04-25] MEDS: Acetaminophen 500 MG TAB PO SCH (20:18)
[2025-04-25 20:53] LABS: #Basophils 0.05 10x3/uL (0.0-0.2); #Eosinophils 0.04 10x3/uL (0.0-0.7); #Monocytes 1.04 10x3/uL (0.11-0.59); #Neutrophils 14.53 10x3/uL (1.40-6.50); %Basophils 0.3 % (0.0-1.0); %Eosinophils 0.2 % (0.0-10.0); %Lymphocytes 8.4 % (21.0-51.0); %Monocytes 6.1 % (0.0-10.0); %Neutrophils 84.5 % (42.0-75.0); Hematocrit 29.0 % (36.0-47.0); Hemoglobin 9.7 g/dL (12.0-16.0); Mean Corpuscular Hemoglobin 34.9 pg (27.0-31.0); Mean Corpuscular Volume 104.3 fL (78.0-98.0); Platelet Count 533 10x3/uL (130-400); Red Blood Cell (RBC) Count 2.78 mill/uL (4.20-5.40); White Blood Cell (WBC) Count 17.19 10x3/uL (4.8-10.8)
[2025-04-25 21:12] LABS: ALT (SGPT) 9 U/L (Less than 34); AST (SGOT) 29 U/L (11-34); Albumin 1.3 g/dL (3.1-4.5); Alkaline Phosphatase 108 U/L (40-110); Anion Gap 15 mmol/L (10-20); BUN (Urea Nitrogen) 4 mg/dL (9.8-20.1); Bilirubin, Total 0.3 mg/dL (0.3-1.2); Calc. Creatinine Clearance 44 mL/min (70-130); Calcium 7.2 mg/dL (7.8-10.44); Carbon Dioxide 21 mmol/L (22-29); Chloride 106 mmol/L (98-107); Globulin 3.4 g/dL (2.4-3.5); Glucose 99 mg/dL (70-105); Magnesium 1.8 mg/dL (1.6-2.6); Potassium 3.1 mmol/L (3.5-5.1); Sodium 139 mmol/L (136-145)
[2025-04-26 05:28] LABS: #Basophils 0.06 10x3/uL (0.0-0.2); #Eosinophils 0.03 10x3/uL (0.0-0.7); #Monocytes 1.10 10x3/uL (0.11-0.59); #Neutrophils 8.91 10x3/uL (1.40-6.50); %Basophils 0.5 % (0.0-1.0); %Eosinophils 0.2 % (0.0-10.0); %Lymphocytes 16.7 % (21.0-51.0); %Monocytes 9.0 % (0.0-10.0); %Neutrophils 72.9 % (42.0-75.0); Hematocrit 29.0 % (36.0-47.0); Hemoglobin 10.0 g/dL (12.0-16.0); Mean Corpuscular Hemoglobin 35.0 pg (27.0-31.0); Mean Corpuscular Volume 101.4 fL (78.0-98.0); Platelet Count 489 10x3/uL (130-400); Red Blood Cell (RBC) Count 2.86 mill/uL (4.20-5.40); White Blood Cell (WBC) Count 12.23 10x3/uL (4.8-10.8)
[2025-04-26 05:45] LABS: Anion Gap 11 mmol/L (10-20); BUN (Urea Nitrogen) 4 mg/dL (9.8-20.1); Calc. Creatinine Clearance 42 mL/min (70-130); Calcium 7.2 mg/dL (7.8-10.44); Carbon Dioxide 24 mmol/L (22-29); Chloride 108 mmol/L (98-107); Glucose 86 mg/dL (70-105); Magnesium 1.8 mg/dL (1.6-2.6); Potassium 3.3 mmol/L (3.5-5.1); Sodium 140 mmol/L (136-145)
[2025-04-26] MEDS: Thiamine 100 MG TAB PO SCH (09:21)
[2025-04-27 11:11] LABS: Anion Gap 13 mmol/L (10-20); BUN (Urea Nitrogen) 5 mg/dL (9.8-20.1); Calc. Creatinine Clearance 43 mL/min (70-130); Calcium 7.3 mg/dL (7.8-10.44); Carbon Dioxide 24 mmol/L (22-29); Chloride 107 mmol/L (98-107); Glucose 91 mg/dL (70-105); Potassium 3.1 mmol/L (3.5-5.1); Sodium 141 mmol/L (136-145)
[2025-04-27 11:17] LABS: #Basophils 0.04 10x3/uL (0.0-0.2); #Eosinophils 0.08 10x3/uL (0.0-0.7); #Monocytes 0.96 10x3/uL (0.11-0.59); #Neutrophils 8.70 10x3/uL (1.40-6.50); %Basophils 0.4 % (0.0-1.0); %Eosinophils 0.7 % (0.0-10.0); %Lymphocytes 13.2 % (21.0-51.0); %Monocytes 8.5 % (0.0-10.0); %Neutrophils 76.6 % (42.0-75.0); Hematocrit 25.4 % (36.0-47.0); Hemoglobin 8.4 g/dL (12.0-16.0); Mean Corpuscular Hemoglobin 34.0 pg (27.0-31.0); Mean Corpuscular Volume 102.8 fL (78.0-98.0); Platelet Count 543 10x3/uL (130-400); Red Blood Cell (RBC) Count 2.47 mill/uL (4.20-5.40); White Blood Cell (WBC) Count 11.35 10x3/uL (4.8-10.8)
[2025-04-27 11:33] LABS: Hep C IgG Ab Reflex HepC Qnt S/CO (NonReactive); Hep C Index 4.84 S/CO (0-0.79)
[2025-04-28 05:24] LABS: #Basophils 0.06 10x3/uL (0.0-0.2); #Eosinophils 0.15 10x3/uL (0.0-0.7); #Monocytes 0.98 10x3/uL (0.11-0.59); #Neutrophils 7.20 10x3/uL (1.40-6.50); %Basophils 0.6 % (0.0-1.0); %Eosinophils 1.5 % (0.0-10.0); %Lymphocytes 15.7 % (21.0-51.0); %Monocytes 9.8 % (0.0-10.0); %Neutrophils 71.7 % (42.0-75.0); Hematocrit 26.0 % (36.0-47.0); Hemoglobin 8.7 g/dL (12.0-16.0); Mean Corpuscular Hemoglobin 34.7 pg (27.0-31.0); Mean Corpuscular Volume 103.6 fL (78.0-98.0); Platelet Count 555 10x3/uL (130-400); Red Blood Cell (RBC) Count 2.51 mill/uL (4.20-5.40); White Blood Cell (WBC) Count 10.04 10x3/uL (4.8-10.8)
[2025-04-28 05:39] LABS: Anion Gap 11 mmol/L (10-20); BUN (Urea Nitrogen) 4 mg/dL (9.8-20.1); Calc. Creatinine Clearance 52 mL/min (70-130); Calcium 7.7 mg/dL (7.8-10.44); Carbon Dioxide 27 mmol/L (22-29); Chloride 106 mmol/L (98-107); Glucose 78 mg/dL (70-105); Potassium 3.0 mmol/L (3.5-5.1); Sodium 141 mmol/L (136-145)
[2025-04-29 05:44] LABS: Anion Gap 15 mmol/L (10-20); BUN (Urea Nitrogen) 5 mg/dL (9.8-20.1); Calc. Creatinine Clearance 58 mL/min (70-130); Calcium 7.6 mg/dL (7.8-10.44); Carbon Dioxide 24 mmol/L (22-29); Chloride 105 mmol/L (98-107); Glucose 72 mg/dL (70-105); Potassium 3.8 mmol/L (3.5-5.1); Sodium 140 mmol/L (136-145)
[2025-04-29 22:38] LABS: Hep C PCR-Quant HCV Not Detected IU/mL (.)
[2025-04-30] MEDS: Guaifenesin DM 100-10/5 ML UDCUP PO PRN (14:15)
[2025-05-02 10:00] LABS: #Basophils 0.06 10x3/uL (0.0-0.2); #Eosinophils 0.49 10x3/uL (0.0-0.7); #Monocytes 1.00 10x3/uL (0.11-0.59); #Neutrophils 5.97 10x3/uL (1.40-6.50); %Basophils 0.7 % (0.0-1.0); %Eosinophils 5.5 % (0.0-10.0); %Lymphocytes 15.4 % (21.0-51.0); %Monocytes 11.1 % (0.0-10.0); %Neutrophils 66.5 % (42.0-75.0); Hematocrit 26.9 % (36.0-47.0); Hemoglobin 8.6 g/dL (12.0-16.0); Mean Corpuscular Hemoglobin 33.9 pg (27.0-31.0); Mean Corpuscular Volume 105.9 fL (78.0-98.0); Platelet Count 662 10x3/uL (130-400); Red Blood Cell (RBC) Count 2.54 mill/uL (4.20-5.40); White Blood Cell (WBC) Count 8.97 10x3/uL (4.8-10.8)
[2025-05-02 10:23] LABS: ALT (SGPT) Less than 7 U/L (Less than 34); AST (SGOT) 21 U/L (11-34); Albumin 1.5 g/dL (3.1-4.5); Alkaline Phosphatase 66 U/L (40-110); Anion Gap 12 mmol/L (10-20); BUN (Urea Nitrogen) 4 mg/dL (9.8-20.1); Bilirubin, Total 0.2 mg/dL (0.3-1.2); Calc. Creatinine Clearance 40 mL/min (70-130); Calcium 7.8 mg/dL (7.8-10.44); Carbon Dioxide 24 mmol/L (22-29); Chloride 108 mmol/L (98-107); Globulin 4.0 g/dL (2.4-3.5); Glucose 99 mg/dL (70-105); Magnesium 1.3 mg/dL (1.6-2.6); Potassium 3.4 mmol/L (3.5-5.1); Sodium 141 mmol/L (136-145)
[2025-05-06 09:32] LABS: #Basophils 0.07 10x3/uL (0.0-0.2); #Eosinophils 0.59 10x3/uL (0.0-0.7); #Monocytes 0.93 10x3/uL (0.11-0.59); #Neutrophils 7.77 10x3/uL (1.40-6.50); %Basophils 0.6 % (0.0-1.0); %Eosinophils 5.3 % (0.0-10.0); %Lymphocytes 15.9 % (21.0-51.0); %Monocytes 8.3 % (0.0-10.0); %Neutrophils 69.2 % (42.0-75.0); Hematocrit 26.2 % (36.0-47.0); Hemoglobin 8.6 g/dL (12.0-16.0); Mean Corpuscular Hemoglobin 34.4 pg (27.0-31.0); Mean Corpuscular Volume 104.8 fL (78.0-98.0); Platelet Count 557 10x3/uL (130-400); Red Blood Cell (RBC) Count 2.50 mill/uL (4.20-5.40); White Blood Cell (WBC) Count 11.22 10x3/uL (4.8-10.8)
[2025-05-06 09:47] LABS: Anion Gap 15 mmol/L (10-20); BUN (Urea Nitrogen) 7 mg/dL (9.8-20.1); Calc. Creatinine Clearance 39 mL/min (70-130); Calcium 8.5 mg/dL (7.8-10.44); Carbon Dioxide 25 mmol/L (22-29); Chloride 106 mmol/L (98-107); Glucose 101 mg/dL (70-105); Potassium 4.1 mmol/L (3.5-5.1); Sodium 142 mmol/L (136-145)
[2025-05-08 10:39] LABS: #Basophils 0.06 10x3/uL (0.0-0.2); #Eosinophils 0.58 10x3/uL (0.0-0.7); #Monocytes 1.05 10x3/uL (0.11-0.59); #Neutrophils 8.33 10x3/uL (1.40-6.50); %Basophils 0.5 % (0.0-1.0); %Eosinophils 4.9 % (0.0-10.0); %Lymphocytes 14.1 % (21.0-51.0); %Monocytes 8.9 % (0.0-10.0); %Neutrophils 71.1 % (42.0-75.0); Hematocrit 26.0 % (36.0-47.0); Hemoglobin 8.1 g/dL (12.0-16.0); Mean Corpuscular Hemoglobin 33.1 pg (27.0-31.0); Mean Corpuscular Volume 106.1 fL (78.0-98.0); Platelet Count 570 10x3/uL (130-400); Red Blood Cell (RBC) Count 2.45 mill/uL (4.20-5.40); White Blood Cell (WBC) Count 11.74 10x3/uL (4.8-10.8)
[2025-05-08 11:00] LABS: Anion Gap 13 mmol/L (10-20); BUN (Urea Nitrogen) 8 mg/dL (9.8-20.1); Calc. Creatinine Clearance 39 mL/min (70-130); Calcium 8.7 mg/dL (7.8-10.44); Carbon Dioxide 25 mmol/L (22-29); Chloride 108 mmol/L (98-107); Glucose 80 mg/dL (70-105); Magnesium 1.4 mg/dL (1.6-2.6); Potassium 4.1 mmol/L (3.5-5.1); Sodium 142 mmol/L (136-145)
[2025-05-09 05:29] LABS: Magnesium 1.4 mg/dL (1.6-2.6)
[2025-05-10 16:32] VITALS: BP 146/90; TEMP 98
== END 2025-05-10 18:18 | DRG 871 ==
LOC: 2NO 20:49 → MSONC 04-25 17:32
PROVIDERS: ADMIT Internal Medicine; ATTEND Internal Medicine
DX: A41.9 Sepsis, unspecified organism (principal); E43 Unspecified severe protein-calorie malnutrition; I21.A1 Myocardial infarction type 2; J18.9 Pneumonia, unspecified organism; J85.2 Abscess of lung without pneumonia; N17.9 Acute kidney failure, unspecified; E87.20 Acidosis, unspecified; F10.239 Alcohol dependence with withdrawal, unspecified; I10 Essential (primary) hypertension; Z60.2 Problems related to living alone; E11.9 Type 2 diabetes mellitus without complications; E80.6 Other disorders of bilirubin metabolism; E87.6 Hypokalemia; D63.8 Anemia in other chronic diseases classified elsewhere; Z68.1 Body mass index [BMI] 19.9 or less, adult; Z86.711 Personal history of pulmonary embolism; Z79.899 Other long term (current) drug therapy
CPT/HCPCS: 0241U; 36415; 36416; 70553; 71045; 71275; 74230; 76376; 76705; 80048; 80053; 80202; 82150; 82607; 82945; 83036; 83516; 83605; 83615; 83735; 83986; 84100; 84145; 84157; 84443; 85025; 85060; 85610; 86037; 86480; 86606; 86612; 86698; 86803; 87070; 87081; 87102; 87116; 87205; 87206; 87389; 87449; 87522; 87899; 88112; 88305; 89051; 93005; 93010; J0360; J0696; J1644; J2543; J3373; J3411; J3475; J7030; J7050; J7120; Q9967